=== PATIENT | female | born 1980 | race Caucasian/White ===

== ENCOUNTER 2020-07-04 08:50 | Outpatient (REF) | payer MEDICAID, SELFPAY | END 2020-07-04 08:51 | disposition home or self-care (01) | LOC: HO.SCI 08:50 | DX: Z13.89 Encounter for screening for other disorder (principal) ==

== ENCOUNTER 2020-07-14 13:06 | Outpatient (REF) | payer MEDICAID, SELFPAY ==
--- NOTE | ~2020-07-14 | CT_ITS ---
EXAMINATION: CT FACIAL BONES WITHOUT CONTRAST CLINICAL INFORMATION: Gender affirmation procedure, evaluate facial bones including vertex of skull anteriorly. COMPARISON: None TECHNIQUE: Multidetector helical imaging acquired in the axial plane with generation of reformatted acquisitions. This CT examination was performed using dose optimization techniques as appropriate, variously including the following: *Automated exposure control *Adjustment of mA and/or kV according to patient size (this includes techniques or standardized protocols for targeted exams where dose is matched to indication/reason for exam; i.e. extremities or head) *Use of iterative reconstruction technique DLP: 131 mGy-cm FINDINGS: There is mild mucosal thickening in the maxillary sinuses. [id number] ethmoid sinus mucosal thickening noted. The frontal sinuses are not pneumatized. There is very mild mucosal thickening along the anterior morales of the sphenoid sinuses bilaterally. There is a moderate leftward deviation of the nasal septum with nasal septal spurring distorting the left inferior turbinate. The ostiomeatal complexes are clear. The lamina papyracea are intact. The ethmoid roofs are asymmetric. The carotid canals are normally covered by bone. No maxillary periapical disease is seen. The third maxillary molar tooth on the left side is impacted and incompletely erupted with the crown of the tooth directed posteroinferiorly. The third mandibular molar teeth are impacted with the crown on the left side directed anteriorly. The visualized middle ear cavities are well aerated. The orbits are normal. The TMJs are unremarkable. The imaged portions of the brain demonstrate no acute abnormality. A left-sided stapes prosthesis is in place, situated within the vestibule. There are imaging findings of bilateral fenestral otosclerosis as well. The mastoid air cells and middle ear cavities are well aerated. CT/CT facial bones wo con IMPRESSION: [id number] ethmoid sinus mucosal thickening with milder patchy areas of mucosal thickening in the maxillary and sphenoid sinuses. Of note, the frontal sinuses are not developed. Moderate leftward nasal septal deviation with nasal septal spurring distorting the left inferior turbinate. Bilateral fenestral otosclerosis with a stapes prosthesis in place on the left side.
== END 2020-07-14 13:07 | disposition home or self-care (01) ==
LOC: HO.CT 13:06
PROVIDERS: PCP Internal Medicine; Visit Provider Dentist
DX: Z42.8 Encounter for other plastic and reconstructive surgery following medical procedure or healed injury (principal)
CPT/HCPCS: 70486

== ENCOUNTER → 2021-06-12 11:32 | Outpatient (BNVA) | payer MEDICAID, SELFPAY | PROVIDERS: PCP Internal Medicine; Visit Provider Nurse Practitioner | DX: K21.9 Gastro-esophageal reflux disease without esophagitis (principal); R13.10 Dysphagia, unspecified | CPT/HCPCS: 99202 ==

== ENCOUNTER 2021-06-19 09:59 | Day surgery (SDC) | payer MEDICAID, SELFPAY ==
--- NOTE | 2021-06-17 13:30 | HO.ANESPROP2 ---
Documented by User: Jazzy Gutierrez NP 06/17/21 13:30 HPI - Anesthesia Eval Consult details Narrative: 40yo F for Upper Endoscopy [facility] Active Problems Active Problems: All Active Problems (Updated 06/12/21 @ 11:56 by KIRA Otero) Dysphagia (Acute) GERD (gastroesophageal reflux disease) (Acute) Past Medical History Medical History Dysphagia GERD (gastroesophageal reflux disease) Otosclerosis Uvulitis Surgical History Surgical History History of facial surgery Social History Social History Patient Tobacco Use Status: Never used Tobacco Tobacco use type: Cigarette Smoked in Last 30 Days: No Use of substances other than those prescribed or required for medical reasons: Yes Substance Use Frequency: Weekly Are you DNR?: No Advance Directives: No Advance Directives Information Provided: Yes Meds Allergies Allergy/AdvReac Type Severity Reaction Status Date / Time novacaine Allergy rash Uncoded 06/19/21 10:18 Home Medications Medication Instructions Recorded Confirmed Last Taken Type estradiol 1 mg tablet 6 mg PO 06/12/21 Unknown History progesterone micronized 200 mg 200 mg PO BEDTIME 06/12/21 Unknown History capsule spironolactone 100 mg tablet 200 mg PO BID 06/12/21 Unknown History trazodone 100 mg tablet 100 mg PO BEDTIME 06/12/21 Unknown History Exam Exam Date and Time: June 17, 2021 1330 Assessment and Plan Assessment Anesthesia Assessment: Chart Reviewed Documented by User: Leesa Turpin MD 06/19/21 13:06 [facility] Past Medical History Medical History Dysphagia GERD (gastroesophageal reflux disease) Otosclerosis Uvulitis Surgical History Surgical History History of facial surgery History of Problems with Anesthesia: No Social History Social History Patient Tobacco Use Status: Never used Tobacco Tobacco use type: Cigarette Smoked in Last 30 Days: No Use of substances other than those prescribed or required for medical reasons: Yes Substance Use Frequency: Weekly Are you DNR?: No Advance Directives: No Advance Directives Information Provided: Yes Meds Allergies Allergy/AdvReac Type Severity Reaction Status Date / Time novacaine Allergy rash Uncoded 06/19/21 10:18 Home Medications Medication Instructions Recorded Confirmed Last Taken Type estradiol 1 mg tablet 6 mg PO 06/12/21 Unknown History progesterone micronized 200 mg 200 mg PO BEDTIME 06/12/21 Unknown History capsule spironolactone 100 mg tablet 200 mg PO BID 06/12/21 Unknown History trazodone 100 mg tablet 100 mg PO BEDTIME 06/12/21 Unknown History Exam Airway Mallampati Class: II TM Dist: >3cm Neck ROM: Full Loose/Missing/Broken Teeth: No Heart: RRR Lungs: CTA Assessment and Plan Final Anesthetic Review History of Problems with Anesthesia: No NPO: Yes ASA Class: II Final Preanesthetic Review: Meds/Allgs Chart Reviewed, Consent Obtained/Reviewed and Anes Risks/Benef Reviewed Patient Risk: Low Procedure Risk: Intermediate Anesthetic Plan Anesthetic Plan: MAC: Disposition: Standard PACU
[2021-06-19 10:29] VITALS: BMI 20.2
[2021-06-19 10:32] VITALS: BP 125/80; PULSE 80; RESP 16; TEMP 36.8; O2SAT 98
[2021-06-19] MEDS: Lactated Ringers 1,000 ML 100 ML IVCONT (11:13)
--- NOTE | 2021-06-19 11:48 | MHC.SHP ---
Pre-Procedural Eval Section A Date of Service: 06/19/21 The patient is an INPATIENT: No Changes since office visit: Yes Patient answered all questions; No Cold of Flu in the past 2 weeks, No New Medical Problems and No Changes in Medication The History & Physical has been completed within 30 days and I have reviewed it.: Yes Section B Chief Complaint: dysphagia Allergies: Allergies Allergy/AdvReac Type Severity Reaction Status Date / Time novacaine Allergy rash Uncoded 06/19/21 10:18 Plan I have reviewed the history and physical and performed a pertinent physical examination on my patient. No changes have occurred unless specified.
--- NOTE | 2021-06-19 11:48 | PM.OP ---
Brief Operative Note Date of Service: 06/19/21 Pre-op diagnosis: GERD, dysphagia Post-op diagnosis: same Procedure: FLEXIBLE TRANSORAL UPPER GASTROINTESTINAL ENDOSCOPY WITH BIOPSIES AND ESOPHAGEAL BALOON DILATION Consent: Indications for the procedure and potential complications of bleeding, perforation, reaction to medications and missed diagnosis were discussed with the patient and informed consent was obtained. Instrument: Olympus GIF H 190 mid size upper endoscope Monitoring: Vital signs and clinical assessment, continuous EKG monitoring, Pulse oximetry, Carbon Dioxide monitoring and blood pressure monitoring were done throughout the procedure. Procedure: The patient was placed in the left lateral decubitis position and pre-procedure medications were administered and a bite block was placed. The endoscope was inserted into the mouth and advanced under direct vision to the third part of duodenum. A careful inspection was made as the upper endoscope was withdrawn including a retroflexed examination of the proximal stomach; Findings and interventions are described below. Findings: Larynx: Minimal erythema of arytenoid cartilages suggestive of LPRD Esophagus: GE junction at 40 cms. No esophagitis, Vo's, stricture or ring. Biopsies were obtained from proximal esophagus to check for EOE. Esophageal balloon dilation was performed with a 20 mm (60F) CRE balloon x 60 seconds Stomach: Mild gastric erythema. Biopsies were obtained. Grade 2 flap valve on retroflexed examination of the cardia. Duodenum: Normal bulb and descending duodenum Intervention: Biopsies and baloon dilation as noted above Impression and Post Procedure Diagnosis: Endoscopy Findings: LARYNX: Changes suggestive of LPRD ESOPHAGUS: GE junction at 40 cms. No esophagitis, Vo's, stricture or ring. Biopsies were obtained from proximal esophagus to check for EOE. Empiric esophageal balloon dilation was performed with a 20 mm (60F) CRE balloon x 60 seconds STOMACH: Mild gastritis Plan: Await pathology results Patient has an appointment on 07/17/21 in the GI Clinic with Rosemary Carrera NP . Above findings were reviewed with the patient and GERD handout was given in the discharge area Surgeon: Maile Lee MD Anesthesia: MAC (Dr Turpin) Was an Salvage Laborer used for this Procedure?: Yes Salvage Laborer: Lexi Schroeder Estimated blood loss (mL): 0 Pathology: other (A. gastric antrum bxs, R/O H. pylori B. proximal esophagus bxs, R/O EOE) Condition: stable Disposition: PACU
--- NOTE | 2021-06-19 11:57 | W.PM.OPN ---
Operative Note Operative Note Date of Service: 06/19/21 Narrative: Pre-op diagnosis: GERD, dysphagia Post-op diagnosis:?same Procedure: FLEXIBLE TRANSORAL UPPER GASTROINTESTINAL ENDOSCOPY WITH BIOPSIES AND ESOPHAGEAL BALOON DILATION Consent:?Indications for the procedure and potential complications of bleeding, perforation, reaction to medications and missed diagnosis were discussed with the patient and informed consent was obtained. Instrument:?Olympus GIF H 190 mid size upper endoscope Monitoring: Vital signs and clinical assessment, continuous EKG monitoring, Pulse oximetry, Carbon Dioxide monitoring and blood pressure monitoring were done throughout the procedure. Procedure:?The patient was placed in the left lateral decubitis position and pre-procedure medications were administered and a bite block was placed. The endoscope was inserted into the mouth and advanced under direct vision to the third part of duodenum. A careful inspection was made as the upper endoscope was withdrawn including a retroflexed examination of the proximal stomach; Findings and interventions are described below. Findings: Larynx:? Minimal erythema of arytenoid cartilages suggestive of LPRD Esophagus: GE junction at 40 cms. No esophagitis, Vo's, stricture or ring. Biopsies were obtained from proximal esophagus to check for EOE. Esophageal balloon dilation was performed with a 20 mm (60F) CRE balloon x 60 seconds Stomach: Mild gastric erythema. Biopsies were obtained. Grade 2 flap valve on retroflexed examination of the cardia. Duodenum: Normal bulb and descending duodenum Intervention: Biopsies and baloon dilation as noted above Impression and Post Procedure Diagnosis: Endoscopy Findings: LARYNX: Changes suggestive of LPRD ESOPHAGUS:? GE junction at 40 cms. No esophagitis, Vo's, stricture or ring. Biopsies were obtained from proximal esophagus to check for EOE. Empiric esophageal balloon dilation was performed with a 20 mm (60F) CRE balloon x 60 seconds STOMACH: Mild gastritis Plan: Await pathology results Patient has an appointment on 07/17/21 in the GI Clinic with? Rosemary Carrera NP . Above findings were reviewed with the patient and GERD handout was given in the discharge area Surgeon: Maile Lee MD Anesthesia:?TAYLOR (Dr Turpin) Was an Gas Distribution Plant Operator used for this Procedure?:?Yes Gas Distribution Plant Operator:?Lexi Schroeder Estimated blood loss (mL):?0 Pathology:?other (A. gastric antrum bxs, R/O H. pylori? B. proximal esophagus bxs, R/O EOE) Condition:?stable Disposition:?PACU
[2021-06-19 12:25] VITALS: BP 91/56; PULSE 74; RESP 18; TEMP 36.7; O2SAT 99
[2021-06-19 12:49] VITALS: BP 106/60; PULSE 64; RESP 16; TEMP 36.8; O2SAT 100
== END 2021-06-19 13:24 | disposition home or self-care (01) ==
PROVIDERS: PCP Internal Medicine; Visit Provider Internal Medicine Gastroenterology
PROC: 0DJ08ZZ Inspection of Upper Intestinal Tract, Via Natural or Artificial Opening Endoscopic (ICD-10-PCS; CPT 43235; principal; 2021-06-19 11:00)
DX: R13.10 Dysphagia, unspecified (principal); K29.50 Unspecified chronic gastritis without bleeding; K21.9 Gastro-esophageal reflux disease without esophagitis; F64.9 Gender identity disorder, unspecified
CPT/HCPCS: 43249; 43239; 88305; 88342; C1726

== ENCOUNTER → 2021-08-04 08:15 | Outpatient (BNVA) | payer MEDICAID, SELFPAY | PROVIDERS: PCP Internal Medicine; Visit Provider Nurse Practitioner | DX: K21.9 Gastro-esophageal reflux disease without esophagitis (principal); R13.10 Dysphagia, unspecified | CPT/HCPCS: 99212 ==

== ENCOUNTER 2021-11-07 14:46 | Emergency (ER) | payer MEDICAID, SELFPAY ==
--- NOTE | ~2021-11-07 | US_ITS ---
EXAMINATION: US VENOUS ULTRASOUND WITH DOPPLER LOWER EXTREMITY, LEFT CLINICAL INFORMATION: Pain and bruising. History of vascular issues. Swelling. Rule out DVT. COMPARISON: None TECHNIQUE: Ultrasound of the deep veins is performed from the hip to the calf with compression sonography and color and pulse Doppler assessment. Spectral analysis with color-flow imaging is performed. FINDINGS: There is normal venous compression and respiratory variation and augmented flow. The visualized common femoral vein, superficial femoral vein, profunda femoral vein, popliteal vein, and the trifurcation region shows no evidence of deep venous thrombosis. There is no significant popliteal fossa cyst. No additional findings. If the patient's symptoms persist, followup ultrasound in 5 days 7 days might be of value to exclude proximal propagation from a non-visualized calf vein. US/US venous duplex LE IMPRESSION: No DVT demonstrated in the left lower extremity.
[2021-11-07 15:02] VITALS: BP 123/81; PULSE 67; RESP 16; TEMP 36.5; O2SAT 99; BMI 21.9
--- NOTE | 2021-11-07 18:27 | ED.LOWEXIN ---
HPI - Extremity Injury (Lower) General Chief Complaint: Extremity Injury, Lower Stated Complaint: ruptured artery in leg/numb Time Seen by Provider: 11/07/21 18:27 Source: patient Mode of arrival: ambulatory Limitations: no limitations History of Present Illness HPI Narrative: 41-year-old here with history of varicose veins here with reports of bruising and swelling to the left lower leg lift for several days. Patient spoke to the vascular on-call service and was recommended that she come in for a ultrasound. Patient is taking estrogen supplements. No shortness of breath, chest pain, numbness, tingling, fevers or chills. Related Data Home Medications Medication Instructions Recorded Confirmed estradiol 1 mg tablet 6 mg PO 06/12/21 progesterone micronized 200 mg 200 mg PO BEDTIME 06/12/21 capsule spironolactone 100 mg tablet 200 mg PO BID 06/12/21 trazodone 100 mg tablet 100 mg PO BEDTIME 06/12/21 Previous Rx's Medication Instructions Recorded famotidine 40 mg tablet (Pepcid) 40 mg PO BEDTIME #30 tabs 08/04/21 omeprazole 40 mg capsule,delayed 40 mg PO DAILY 30 days #30 caps 08/04/21 release Allergies Allergy/AdvReac Type Severity Reaction Status Date / Time novacaine Allergy rash Uncoded 08/04/21 08:23 Review of Systems Review of Systems: Yes all other systems are reviewed and are negative Constitutional: Constitutional: Reports no additional constitutional complaints, Denies body ache(s), Denies chills, Denies fever(s), Denies headache(s) and Denies weakness Eyes: Eyes: Reports no additional eye complaints and Denies change in vision ENT: Reports system reviewed and no additional complaints, except as documented, Denies dizziness, Denies headache(s), Denies nasal congestion, Denies nasal discharge and Denies neck pain Cardiovascular: Cardiovascular: Reports no additional cardiovascular complaints, Denies chest pain, Reports leg edema and Denies dyspnea Respiratory: Respiratory: Reports no additional respiratory complaints, Denies cough and Denies dyspnea Gastrointestinal: Gastrointestinal: Reports no additional gastrointestinal complaints, Denies abdominal pain, Denies diarrhea, Denies nausea and Denies vomiting Genitourinary: Genitourinary: Denies urinary incontinence Musculoskeletal: Musculoskeletal: Reports no additional musculoskeletal complaints, Denies back pain, Denies arthralgias, Denies joint swelling, Denies neck pain, Denies numbness and Denies tingling Integumentary/Breasts: Skin/Breast: Reports system reviewed and no additional complaints, except as docu and Denies rash Neurologic: Reports system reviewed and no additional complaints, except as documented, Denies dizziness, Denies headache(s), Denies numbness, Denies tingling and Denies weakness PMFSH Past Medical History Attestation statement: The following information was validated with the patient. Source: old records reviewed and nursing notes reviewed Medical History Otosclerosis Uvulitis Surgical History History of facial surgery Social History Social History Patient Tobacco Use Status: Never used Tobacco Tobacco use type: Cigarette Advance Directives: No Advance Directives Information Provided: No Physical Exam Vital Signs: Vital Signs: Last Vital Signs Temp 97.7 F 11/07/21 15:02 Pulse 67 11/07/21 15:02 Resp 16 11/07/21 15:02 BP 123/81 11/07/21 15:02 Pulse Ox 99 11/07/21 15:02 O2 Del Method 11/07/21 15:02 BMI result Body Mass Index 21.9 Const: General: cooperative, healthy appearing, comfortable and no acute distress Orientation/consciousness: patient oriented x3 Limitations: no limitations HEENT: Head: Yes normal to inspection Ears: hearing grossly normal bilaterally Eyes: General: appearance normal, both eyes and all related structures Pupils: Equal, round and reactive pupils present Neck: Neck: Yes normal visual inspection Chest: Chest palpation & inspection: normal inspection of the chest Resp: Effort & Inspection: normal respiratory effort Back/Spine/Pelvis: Thoracic/Lumbar Spine: thoracic and lumbar spine normal to inspection Skin: General skin exam: no rashes or lesions noted Neuro: General: patient oriented x3 and moves all extremities Cranial nerves: Yes Equal, round and reactive pupils present Extrem: Other: ecchymosis over the lateral left leg with mild tenderness. No obvious swelling/redness/warmth. Distal DP and PT pulses which are normal. No apparent swelling Course Course Course Narrative: Ultrasound is negative for DVT. There is no redness or warmth to suggest cellulitis. Patient has compression stockings and a vascular surgeon she can follow-up with. Reviewed worrisome signs and symptoms when to return to the emergency department. Comfortable discharge home. MDM - Extremity Injury (Lower) MDM Narrative Medical decision making narrative: 41-year-old patient with a history of varicose veins here with bruising and swelling to the left lateral leg for several days who is currently on estrogen therapy. Venous ultrasound will be obtained to r/o DVT Medical Records Attestation: I reviewed the patient's medical records. Lab Data Attestation: I reviewed the patient's lab results. Imaging Data Venous US: Attestation: I personally reviewed and interpreted this imaging study as follows: Radiologist's impression: TECHNIQUE: Ultrasound of the deep veins is performed from the hip to the calf with compression sonography and color and pulse Doppler assessment. Spectral analysis with color-flow imaging is performed. FINDINGS: There is normal venous compression and respiratory variation and augmented flow. The visualized common femoral vein, superficial femoral vein, profunda femoral vein, popliteal vein, and the trifurcation region shows no evidence of deep venous thrombosis. ? There is no significant popliteal fossa cyst. No additional findings. If the patient's symptoms persist, followup ultrasound in 5 days 7 days might be of value to exclude proximal propagation from a non-visualized calf vein. US/US venous duplex LE LT IMPRESSION: No DVT demonstrated in the left lower extremity. Discharge Plan Discharge Clinical Impression: Varicose veins of left lower extremity Patient Disposition: Home, Self-Care Instructions: Venous Insufficiency (DC) Additional Instructions: Your ultrasound shows no evidence of a blood clot. You should follow-up with your vascular doctor as needed Prescriptions: No Action trazodone 100 mg tablet 100 mg PO BEDTIME progesterone micronized 200 mg capsule 200 mg PO BEDTIME spironolactone 100 mg tablet 200 mg PO BID estradiol 1 mg tablet 6 mg PO famotidine [Pepcid] 40 mg tablet 40 mg PO BEDTIME Qty: 30 6RF omeprazole 40 mg capsule,delayed release(DR/EC) 40 mg PO DAILY 30 Days Qty: 30 6RF Referrals: Peyton Emery MD [Primary Care Provider] - 1 week (as needed) Interventions: ED Discharge Assessment Last Done: 11/07/21 18:59 Discharge Date/Time: 11/07/21 18:59
== END 2021-11-07 18:59 | disposition home or self-care (01) ==
PROVIDERS: Emergency Provider Emergency Medicine; PCP Internal Medicine
DX: I83.92 Asymptomatic varicose veins of left lower extremity (principal); R60.0 Localized edema; Z79.899 Other long term (current) drug therapy
CPT/HCPCS: 93971; 99282; 99283

== ENCOUNTER → 2022-03-09 11:20 | Outpatient (BNVA) | payer MEDICAID, SELFPAY | PROVIDERS: PCP Internal Medicine; Visit Provider Nurse Practitioner | DX: K21.9 Gastro-esophageal reflux disease without esophagitis (principal); R13.10 Dysphagia, unspecified; Z98.890 Other specified postprocedural states | CPT/HCPCS: 99212 ==

== ENCOUNTER → 2022-08-31 11:37 | Outpatient (BNVA) | payer MEDICAID, SELFPAY | PROVIDERS: PCP Internal Medicine; Visit Provider Nurse Practitioner | DX: Z01.818 Encounter for other preprocedural examination (principal); K21.9 Gastro-esophageal reflux disease without esophagitis; R13.10 Dysphagia, unspecified | CPT/HCPCS: 99212 ==

== ENCOUNTER 2023-02-28 16:02 | Outpatient (REF) | payer MEDICAID, SELFPAY ==
[2023-02-28 16:14] LABS: MANUAL DIFF FLAG NO
[2023-02-28 16:28] LABS: Basophils Absolute Auto 0.1 X10*3/uL (0.0-0.2); Basophils Percent Auto 0.9 % (0-2); Eosinophils Absolute Auto 0.6 X10*3/uL (0.0-0.4); Eosinophils Percent Auto 4.7 % (0-4); Hematocrit 41.8 % (42.0-52.0); Hemoglobin 13.7 g/dl (14.0-18.0); Imm Gran Abs Auto 0.05 X10*3/uL (0.00-0.03); Imm Gran Pct Auto 0.4 % (0.0-0.4); Lymphocytes Absolute Auto 1.5 X10*3/uL (1.2-4.9); Lymphocytes Percent Auto 12.6 % (20-40); Mean Corpuscular HGB Conc 32.8 g/dl (31.0-36.0); Mean Corpuscular Volume 91.7 fL (80.0-98.0); Mean Platelet Volume 11.8 fL (9.4-12.4); Monocytes Absolute Auto 0.9 X10*3/uL (0.1-1.2); Monocytes Percent Auto 7.3 % (2-11); Neutrophils Absolute Auto 8.8 x10*3/uL (2.0-8.3); Neutrophils Percent Auto 74.1 % (45-73); Platelet Count 307 X10*3/uL (160-400); Red Blood Count 4.56 X10*6/uL (4.60-5.80); Red Cell Distribution Width 12.8 % (11.0-16.0); White Blood Count 11.8 X10*3/uL (4.8-10.8)
[2023-02-28 16:56] LABS: Alanine Aminotransferase 386 U/L (0-40); Albumin Level 4.1 g/dL (3.5-5.0); Alkaline Phosphatase 163 U/L (39-117); Anion Gap 13 (12-20); Aspartate Amino Transferase 323 U/L (5-37); Bilirubin Total 0.6 mg/dL (0.0-1.0); Blood Urea Nitrogen 13 mg/dL (9-16); Calcium 9.7 mg/dL (8.4-10.2); Carbon Dioxide 27 mmol/L (22-29); Chloride 101 mmol/L (96-108); Estimated Glomerular Filt Rate > 60; Glucose Random 103 mg/dL (60-115); Potassium 3.7 mmol/L (3.3-5.1); Sodium 137 mmol/L (135-145); Total Protein 7.2 g/dL (6.5-8.0)
== END 2023-02-28 16:03 | disposition home or self-care (01) ==
LOC: HO.LAB 16:02
PROVIDERS: Visit Provider Nurse Practitioner
DX: Z01.818 Encounter for other preprocedural examination (principal)
CPT/HCPCS: 36415; 80053; 85025

== ENCOUNTER 2023-03-02 09:14 | Outpatient (AMB) | payer MEDICAID, SELFPAY ==
--- NOTE | 2023-03-02 09:18 | MHC.OFFVIS ---
Intake Vital Signs 03/02/23 09:19 Height 5 ft 10 in Weight 156 lb 1.396 oz BMI 22.4 BP 122/77 Blood Pressure Location Lt brachial Position Sitting Pulse 61 Intake Visit Reasons: 6 month follow up Intake Note: Patient returns to in office 6 months follow up of dysphagia and labs. CC: Patient reports doing well. She has EGD with balloon dilation for this Tuesday but she states she got the dates confused and will need to r/s procedure. Allergies procaine [From Novocain] Allergy (Intermediate, Verified 03/02/23 09:25) Rash HPI 6 month follow up HPI Details Assessment & Plan (1) Dysphagia: Comment: oropharyngeal at sternal notch Code(s): R13.10 - Dysphagia, unspecified Plan: She is having more dysphagia if solid foods like bread, nuts, twizzlers, apples. This is slowly getting worse after her improvement from her dilation in 2021. She rates the difficulty at about 2/10, so will get EGD ordered. She feels that her GERD medications are working, but she admits to cheating lately with acidic foods and sauces. ROV 6 mos. Transgender (2) GERD (gastroesophageal reflux disease): Code(s): K21.9 - Gastro-esophageal reflux disease without esophagitis (3) Pre-op examination: Code(s): Z01.818 - Encounter for other preprocedural examination Orders: Orders Complete Blood Cou nt Auto Diff Today Z01.818 - Encounte r for other prepro cedural examinatio n Comprehensive Met. Panel Today Z01.818 - Encounte r for other prepro cedural examinatio n Medications: Refilled omeprazole 40 mg PO DAILY 30 days 30 caps 6RF K21.9 - Gastro-eso phageal reflux dis ease without esoph agitis, R13.10 - D ysphagia, unspecif ied famotidine (Pepcid ) 40 mg PO BEDTIME 30 tabs 6RF K21.9 - Gastro-eso phageal reflux dis ease without esoph agitis, R13.10 - D ysphagia, unspecif ied LABS: Laboratory Tests 02/28/23 04:13 WBC 11.8 H Hgb 13.7 L Hct 41.8 L MCV 91.7 Plt Count 307 Estimated GFR > 60 Total Bilirubin 0.6 AST 323 H ALT 386 H Alkaline Phosphata se 163 H EGD BIOPSY TODAY'S VISIT She has the EGD booked fro this Tuesday, but it is her first day at a new job....she was confused between this appt and the EGD. I will give her to the schedulers Dysphagia continues....... I did not note the aberrant liver labs until after the patient left. So I called and left a message that I wanted some more labs later this day to investigate this. I will follow up on this. ROV after procedure [facility] Medical History Dysphagia GERD (gastroesophageal reflux disease) Otosclerosis Uvulitis Surgical History History of facial surgery Social History Patient Tobacco Use Status: Never used Tobacco Tobacco use type: Cigarette Review of Systems Const Denies fatigue, Denies fever(s), Denies night sweats, Denies poor appetite and Denies weight loss ENT Reports Normal hearing present, Denies dental pain, Reports dysphagia, Denies hearing loss, Denies mouth pain, Denies odynophagia, Denies throat swelling, Denies tongue swelling and Reports other (Dentition adequate) Card Reports no additional complaints Resp Reports no additional complaints GI Denies abdominal pain, Denies melena, Denies bloating, Denies hematochezia, Denies constipation, Denies GI cramping, Reports dysphagia, Denies excessive flatus, Denies early satiety, Reports heartburn, Denies diarrhea, Denies nausea, Denies odynophagia, Denies vomiting and Denies hematemesis Skin/Breast Denies pruritus, Denies lesions, Denies rash and Denies jaundice Neuro Reports Normal hearing present and Denies Abnormal speech present Endo Denies fatigue Aller/Immun Denies throat swelling and Denies tongue swelling Physical Exam Vital Signs: Last Vital Signs Pulse 61 03/02/23 09:19 BP 122/77 03/02/23 09:19 BMI result Body Mass Index 22.4 Const General: cooperative, no acute distress, well developed and well groomed Nutritional Appearance: average body habitus and well nourished Orientation/consciousness: oriented to person, oriented to place and oriented to time Limitations: No language barrier HEENT Head: Yes normocephalic and Yes atraumatic Eyes General: appearance normal, both eyes and all related structures Pupils: Equal, round and reactive pupils present Neck Neck: Yes normal visual inspection and Yes no lymphadenopathy Thyroid: Thyroid normal Resp Effort & Inspection: normal respiratory effort and able to speak in complete sentences Auscultation: clear to auscultation bilaterally Cardio Rate: regular rate Rhythm: regular rhythm Heart sounds: Normal, physiologic split S2 sound present Peripheral pulses: radial pulses present and posterior tibial pulses present GI Inspection: No distended and No Abdominal panniculus present Palpation (GI): Soft to palpation, nontender, no guarding, not rigid and No hepatosplenomegaly present Percussion: Yes normal to percussion Auscultation: normal bowel sounds Rectal Exam - Male: Yes deferred Skin General skin exam: no rashes or lesions noted, turgor normal, skin not dry, no jaundice, No spider nevi and no striae Rashes: no rashes Nails: normal Neuro General: oriented to person, oriented to place and oriented to time Cranial nerves: Yes Equal, round and reactive pupils present and Yes Normal hearing present Speech: No Abnormal speech present Extrem General: Yes normal to inspection, No clubbing, No cyanosis and No edema Psych Appearance: grossly normal and well kempt Mental Status: mental status grossly normal Speech and movement: Normal speech and movement present Affect: normal affect Attitude: cooperative Thought process: Normal thought process present and not confabulating Thought content: Normal thought content present Insight: Limited insight present (Psych) Judgement: Limited judgement present (Psych) Assessment & Plan Assessment & Plan (1) Dysphagia: Comment: oropharyngeal at sternal notch Code(s): R13.10 - Dysphagia, unspecified Plan: EGD BIOPSY TODAY'S VISIT She has the EGD booked fro this Tuesday, but it is her first day at a new job....she was confused between this appt and the EGD. I will give her to the schedulers Dysphagia continues....... I did not note the aberrant liver labs until after the patient left. So I called and left a message that I wanted some more labs later this day to investigate this. I will follow up on this. ROV after procedure (2) Transaminitis: Code(s): R74.01 - Elevation of levels of liver transaminase levels (3) Elevated alkaline phosphatase level: Code(s): R74.8 - Abnormal levels of other serum enzymes (4) GERD (gastroesophageal reflux disease): Code(s): K21.9 - Gastro-esophageal reflux disease without esophagitis Orders: Orders Amylase Today R74.01 - Elevation of levels of liver transaminase levels, R74.8 - Abnormal levels of other serum enzymes ERIC Reflex Titer and Pattern Today R74.01 - Elevation of levels of liver transaminase levels, R74.8 - Abnormal levels of other serum enzymes HIV Ab/Ag Today R74.01 - Elevation of levels of liver transaminase levels, R74.8 - Abnormal levels of other serum enzymes Hepatitis A,B,C Profile Today R74.01 - Elevation of levels of liver transaminase levels, R74.8 - Abnormal levels of other serum enzymes Ferritin Today R74.01 - Elevation of levels of liver transaminase levels, R74.8 - Abnormal levels of other serum enzymes Mitochondrial Antibody Today R74.01 - Elevation of levels of liver transaminase levels, R74.8 - Abnormal levels of other serum enzymes Smooth Muscle Antibody Today R74.01 - Elevation of levels of liver transaminase levels, R74.8 - Abnormal levels of other serum enzymes Transglutaminase Ab IgG Today R74.01 - Elevation of levels of liver transaminase levels, R74.8 - Abnormal levels of other serum enzymes US abdomen comp w elastography Today R74.01 - Elevation of levels of liver transaminase levels, R74.8 - Abnormal levels of other serum enzymes Alpha Fetoprotein Today R74.01 - Elevation of levels of liver transaminase levels, R74.8 - Abnormal levels of other serum enzymes Gamma Glutamyl Transpeptidase Today R74.01 - Elevation of levels of liver transaminase levels, R74.8 - Abnormal levels of other serum enzymes Phosphatidylethanol, Blood Today R74.01 - Elevation of levels of liver transaminase levels, R74.8 - Abnormal levels of other serum enzymes Transglutaminase IgA Today R74.01 - Elevation of levels of liver transaminase levels, R74.8 - Abnormal levels of other serum enzymes Coding Level of Care Code Est Pt Level 3 (70648) Diagnoses Dysphagia R13.10 Transaminitis R74.01 Elevated alkaline phosphatase level R74.8 GERD (gastroesophageal reflux disease) K21.9
[2023-03-02 09:19] VITALS: BP 122/77; PULSE 61; BMI 22.4
== END 2023-03-02 09:57 | disposition home or self-care (01) ==
PROVIDERS: Visit Provider Nurse Practitioner
DX: R13.10 Dysphagia, unspecified (principal); R74.01 Elevation of levels of liver transaminase levels; R74.8 Abnormal levels of other serum enzymes; K21.9 Gastro-esophageal reflux disease without esophagitis
CPT/HCPCS: 99213

== ENCOUNTER → 2023-03-02 09:14 | Outpatient (BNVA) | payer MEDICAID, SELFPAY | PROVIDERS: Visit Provider Nurse Practitioner | DX: R13.10 Dysphagia, unspecified (principal); R74.01 Elevation of levels of liver transaminase levels; R74.8 Abnormal levels of other serum enzymes; K21.9 Gastro-esophageal reflux disease without esophagitis | CPT/HCPCS: 99212 ==

== ENCOUNTER 2023-03-07 13:43 | Outpatient (REF) | payer MEDICAID, SELFPAY ==
[2023-03-07 16:01] LABS: Amylase 57 U/L (28-100); Gamma Glutamyl Transpeptidase 162 U/L (11-51)
[2023-03-07 16:08] LABS: Ferritin 140 ng/mL (20-250)
[2023-03-08 07:45] LABS: HBS Num1 24.24 mIU/mL (0-7.99); HBc Num1 0.08 S/CO (0.00-0.79); HBsAGNum1 0.26 S/CO (0.00-0.99); HIV AB/AG Nonreactive (Nonreactive); HIV Num 1 0.06 S/CO (0.00-0.99); Hepatitis A Antibody IgM 0.18 Index (0-0.79); Hepatitis B Core Antibody Nonreactive (Nonreactive); Hepatitis B Surface Antigen Negative (Negative); ~HepC Num1 0.05 S/CO (0.00-0.79); ~Hepatitis A Antibody IgM Nonreactive (Nonreactive); ~Hepatitis B Surface Antibody REACTIVE (Nonreactive); ~Hepatitis C Antibody Nonreactive (Nonreactive)
[2023-03-08 13:18] LABS: Transglutaminase Ab IgG <1.0 U/mL; Transglutaminase IgA <1.0 U/mL
[2023-03-08 15:28] LABS: Anti Nuclear Antibody Screen NEGATIVE (NEGATIVE)
[2023-03-10 12:19] LABS: Smooth Muscle Antibody 52 U (<20)
[2023-03-10 16:14] LABS: Mitochondrial Antibodies NEGATIVE (NEGATIVE)
[2023-03-11 11:22] LABS: Phosphatidylethanol 16:0-18:1 NEGATIVE; Phosphatidylethanol 16:0-18:2 NEGATIVE
== END 2023-03-07 13:44 | disposition home or self-care (01) ==
LOC: HO.LAB 13:43
PROVIDERS: Visit Provider Nurse Practitioner
DX: Z11.4 Encounter for screening for human immunodeficiency virus [HIV] (principal); R74.01 Elevation of levels of liver transaminase levels; R74.8 Abnormal levels of other serum enzymes
CPT/HCPCS: 36415; 80321; 82105; 82150; 82728; 82977; 86015; 86038; 86364; 86381; 86704; 86706; 86709; 86803; 87340; 87389

== ENCOUNTER 2023-03-11 10:10 | Outpatient (AMB) | payer MEDICAID, SELFPAY ==
--- NOTE | 2023-03-11 10:15 | MHC.OFFVIS ---
Intake Vital Signs 03/11/23 10:17 Height 5 ft 10 in Weight 155 lb BMI 22.2 BP 120/75 Blood Pressure Location Lt brachial Position Sitting Pulse 64 Intake Visit Reasons: follow up results Intake Note: Patient presents to in office visit today in follow up of labs and dysphagia. CC: Patient reports she has been very anxious about lab results. Denies any new GI symptoms or concerns. 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 I will give her to the schedulers Dysphagia continues....... I did not note the aberrant liver labs until after the patient left. So I called and left a message that I wanted some more labs later this day to investigate this. I will follow up on this. ROV after procedure (2) Transaminitis: Code(s): R74.01 - Elevation of levels of liver transaminase levels (3) Elevated alkaline phosphatase level: Code(s): R74.8 - Abnormal levels of other serum enzymes (4) GERD (gastroesophageal reflux disease): Code(s): K21.9 - Gastro-esophageal reflux disease without esophagitis Orders: Orders Amylase Today R74.01 - Elevation of levels of live r transaminase lev els, R74.8 - Abnor mal levels of othe r serum enzymes ERIC Reflex Titer a nd Pattern Today R74.01 - Elevation of levels of live r transaminase lev els, R74.8 - Abnor mal levels of othe r serum enzymes HIV Ab/Ag Today R74.01 - Elevation of levels of live r transaminase lev els, R74.8 - Abnor mal levels of othe r serum enzymes Hepatitis A,B,C Pr ofile Today R74.01 - Elevation of levels of live r transaminase lev els, R74.8 - Abnor mal levels of othe r serum enzymes Ferritin Today R74.01 - Elevation of levels of live r transaminase lev els, R74.8 - Abnor mal levels of othe r serum enzymes Mitochondrial Anti body Today R74.01 - Elevation of levels of live r transaminase lev els, R74.8 - Abnor mal levels of othe r serum enzymes Smooth Muscle Anti body Today R74.01 - Elevation of levels of live r transaminase lev els, R74.8 - Abnor mal levels of othe r serum enzymes Transglutaminase A b IgG Today R74.01 - Elevation of levels of live r transaminase lev els, R74.8 - Abnor mal levels of othe r serum enzymes US abdomen comp w elastography Today R74.01 - Elevation of levels of live r transaminase lev els, R74.8 - Abnor mal levels of othe r serum enzymes Alpha Fetoprotein Today R74.01 - Elevation of levels of live r transaminase lev els, R74.8 - Abnor mal levels of othe r serum enzymes Gamma Glutamyl Tra nspeptidase Today R74.01 - Elevation of levels of live r transaminase lev els, R74.8 - Abnor mal levels of othe r serum enzymes Phosphatidylethano l, Blood Today R74.01 - Elevation of levels of live r transaminase lev els, R74.8 - Abnor mal levels of othe r serum enzymes Transglutaminase I gA Today R74.01 - Elevation of levels of live r transaminase lev els, R74.8 - Abnor mal levels of othe r serum enzymes LABS: Laboratory Tests 02/28/23 02/28/23 02/28/23 04:13 04:13 04:13 Plt Count 307 Ferritin Total Bilirubin 0.6 GGT AST 323 H ALT 386 H Alkaline Phosphata se 163 H Amylase Alpha Fetoprotein ERIC Screen Anti-Mitochondrial Ab Anti-Smooth Muscle Ab Tiss Transglutamin IgG Tiss Transglutamin IgA PEth 16:0/18.1 (PO PEth) Hepatitis A IgM Ab Hep Bs Antigen Hep Bs Antibody Hep B Core Total A b Hepatitis C Ab (EI A) HIV 1&2 Ab/P24 Ag 4thGn 03/07/23 03/07/23 03/07/23 14:01 14:01 14:01 Plt Count Ferritin 140 Total Bilirubin GGT 162 H AST ALT Alkaline Phosphata se Amylase 57 Alpha Fetoprotein 4.0 ERIC Screen NEGATIVE Anti-Mitochondrial Ab NEGATIVE Anti-Smooth Muscle Ab 52 H Tiss Transglutamin IgG <1.0 Tiss Transglutamin IgA <1.0 PEth 16:0/18.1 (PO PEth) Pending Hepatitis A IgM Ab Nonreactive Hep Bs Antigen Negative Hep Bs Antibody REACTIVE Hep B Core Total A b Nonreactive Hepatitis C Ab (EI A) Nonreactive HIV 1&2 Ab/P24 Ag 4thGn Nonreactive ULTRASOUND OF THE ABDOMEN WITH ELASTOGRAPHY . EGD BIOPSY TODAY'S VISIT She is here today with her partner She has been having frequent ROWLEY recently, her hair is falling out. She does not drink ETOH. NO pain or N/V wt loss or severe fatigue. Very worried, stopped all of her medications but then had to restart - caused her hair to fall out. She is on hormone replacement therapy. She identifies as female but was male - wants gender changed. This is been a problem for her in our healthcare system although she has encountered it another area facilities. She requests a phone number for administration to make them aware of the problem to see if this can be appropriately addressed. This is provided. Today I educate her what we will be testing for to rule out things like autoimmune liver disease, infectious etiologies etc.. She is extremely concerned because she is very proactive with her health and I try to reassure her that we can get to the bottom of this. ROV after US that is 03/25 [facility] Medical History (Updated 04/04/23 @ 13:30 by Rosa Lopes RN) Transgender person on hormone therapy Otosclerosis Uvulitis Dysphagia GERD (gastroesophageal reflux disease) Surgical History History of facial surgery Social History Patient Tobacco Use Status: Never used Tobacco Tobacco use type: Cigarette Review of Systems Const Reports fatigue, Denies fever(s), Reports malaise, Denies night sweats, Denies poor appetite and Denies weight loss ENT Reports Normal hearing present, Denies dental pain, Reports dysphagia, Denies hearing loss, Denies mouth pain, Denies odynophagia, Denies throat swelling, Denies tongue swelling and Reports other (Dentition adequate) Card Reports no additional complaints Resp Reports no additional complaints GI Denies abdominal pain, Denies melena, Denies bloating, Denies hematochezia, Denies constipation, Denies GI cramping, Reports dysphagia, Denies excessive flatus, Denies early satiety, Reports heartburn, Denies diarrhea, Denies nausea, Denies odynophagia, Denies vomiting and Denies hematemesis Skin/Breast Denies pruritus, Denies lesions, Denies rash and Denies jaundice Neuro Reports Normal hearing present and Denies Abnormal speech present Psych Reports anxiety Endo Reports fatigue Aller/Immun Denies throat swelling and Denies tongue swelling Physical Exam Vital Signs: Last Vital Signs Pulse 64 03/11/23 10:17 BP 120/75 03/11/23 10:17 BMI result Body Mass Index 22.2 Const General: cooperative, no acute distress, well developed and well groomed Nutritional Appearance: average body habitus and well nourished Orientation/consciousness: oriented to person, oriented to place and oriented to time Limitations: No language barrier HEENT Head: Yes normocephalic and Yes atraumatic Eyes General: appearance normal, both eyes and all related structures Pupils: Equal, round and reactive pupils present Neck Neck: Yes normal visual inspection and Yes no lymphadenopathy Thyroid: Thyroid normal Resp Effort & Inspection: normal respiratory effort and able to speak in complete sentences Auscultation: clear to auscultation bilaterally Cardio Rate: regular rate Rhythm: regular rhythm Heart sounds: Normal, physiologic split S2 sound present Peripheral pulses: radial pulses present and posterior tibial pulses present GI Inspection: No distended and No Abdominal panniculus present Palpation (GI): Soft to palpation, nontender, no guarding, not rigid and No hepatosplenomegaly present Percussion: Yes normal to percussion Auscultation: normal bowel sounds Rectal Exam - Male: Yes deferred Skin General skin exam: no rashes or lesions noted, turgor normal, skin not dry, no jaundice, No spider nevi and no striae Rashes: no rashes Nails: normal Neuro General: oriented to person, oriented to place and oriented to time Cranial nerves: Yes Equal, round and reactive pupils present and Yes Normal hearing present Speech: No Abnormal speech present Extrem General: Yes normal to inspection, No clubbing, No cyanosis and No edema Psych Appearance: grossly normal and well kempt Mental Status: mental status grossly normal Speech and movement: Normal speech and movement present Affect: normal affect Attitude: cooperative Thought process: Normal thought process present and not confabulating Thought content: Normal thought content present Insight: Fair insight present (Psych) Judgement: Fair judgement present (Psych) Assessment & Plan Assessment & Plan (1) Transaminitis: Code(s): R74.01 - Elevation of levels of liver transaminase levels Plan: She is here today with her partner She has been having frequent ROWLYE recently, her hair is falling out. She does not drink ETOH. NO pain or N/V wt loss or severe fatigue. Very worried, stopped all of her medications but then had to restart - caused her hair to fall out. She is on hormone replacement therapy. She identifies as female but was male - wants gender changed. This is been a problem for her in our healthcare system although she has encountered it another area facilities. She requests a phone number for administration to make them aware of the problem to see if this can be appropriately addressed. This is provided. Today I educate her what we will be testing for to rule out things like autoimmune liver disease, infectious etiologies etc.. She is extremely concerned because she is very proactive with her health and I try to reassure her that we can get to the bottom of this. ROV after US that is 03/25 (2) Elevated alkaline phosphatase level: Code(s): R74.8 - Abnormal levels of other serum enzymes (3) Dysuria: Code(s): R30.0 - Dysuria Plan ULTRASOUND OF THE ABDOMEN WITH ELASTOGRAPHY . EGD BIOPSY TODAY'S VISIT She is here today with her partner She has been having frequent ROWLEY recently, her hair is falling out. She does not drink ETOH. NO pain or N/V wt loss or severe fatigue. Very worried, stopped all of her medications but then had to restart - caused her hair to fall out. She is on hormone replacement therapy. She identifies as female but was male - wants gender changed. This is been a problem for her in our healthcare system although she has encountered it another area facilities. She requests a phone number for administration to make them aware of the problem to see if this can be appropriately addressed. This is provided. Today I educate her what we will be testing for to rule out things like autoimmune liver disease, infectious etiologies etc.. She is extremely concerned because she is very proactive with her health and I try to reassure her that we can get to the bottom of this. ROV after US that is 03/25 Orders: Orders Duglas-Foster Virus Profile 03/11/23 R74.01 - Elevation of levels of liver transaminase levels, R74.8 - Abnormal levels of other serum enzymes Ceruloplasmin 03/11/23 R74.01 - Elevation of levels of liver transaminase levels, R74.8 - Abnormal levels of other serum enzymes Prothrombin Time INR 03/11/23 R74.01 - Elevation of levels of liver transaminase levels, R74.8 - Abnormal levels of other serum enzymes Monotest 03/11/23 R74.01 - Elevation of levels of liver transaminase levels, R74.8 - Abnormal levels of other serum enzymes Liver Panel 03/11/23 R74.01 - Elevation of levels of liver transaminase levels, R74.8 - Abnormal levels of other serum enzymes UA CC w/rflx Micro + Cult 03/11/23 R30.0 - Dysuria Coding Level of Care Code Est Pt Level 4 (34165) Diagnoses Transaminitis R74.01 Elevated alkaline phosphatase level R74.8 Dysuria R30.0
[2023-03-11 10:17] VITALS: BP 120/75; PULSE 64; BMI 22.2
== END 2023-03-11 10:50 | disposition home or self-care (01) ==
PROVIDERS: PCP Internal Medicine; Visit Provider Nurse Practitioner
DX: R74.01 Elevation of levels of liver transaminase levels (principal); R74.8 Abnormal levels of other serum enzymes; R30.0 Dysuria
CPT/HCPCS: 99214

== ENCOUNTER 2023-03-11 10:10 | Outpatient (REF) | payer MEDICAID, SELFPAY ==
[2023-03-11 11:16] LABS: INTERNATIONAL NORM RATIO 0.9 (0.9-1.1); Prothrombin Time 10.9 SEC (11.1-13.3)
[2023-03-11 11:43] LABS: Alanine Aminotransferase 70 U/L (0-40); Albumin Level 4.2 g/dL (3.5-5.0); Alkaline Phosphatase 130 U/L (39-117); Aspartate Amino Transferase 33 U/L (5-37); Bilirubin Direct 0.2 mg/dL (0.0-0.5); Bilirubin Total 0.5 mg/dL (0.0-1.0); Total Protein 7.2 g/dL (6.5-8.0)
[2023-03-11 12:35] LABS: Monotest Negative (Negative)
[2023-03-11 13:25] LABS: Appearance Urine Clear; Color Urine Yellow; Glucose Urine UA Negative (Negative); Leukocyte Esterase Urine Trace (Negative); Nitrite Urine Negative (Negative); PH 7.5 (5.0-9.0); UMIC TRIGGER UACC YES; Urine Blood Negative (Negative); Urine Ketones Negative (Negative); Urine Protein Negative (Neg-Trace)
[2023-03-11 13:31] LABS: Bacteria Urine None Seen (None Seen); Hyaline Casts Urine 0-2 /LPF (0-2); RBC Urine 0-2 /HPF (0-2); WBC Urine 0-5 /HPF (0-5)
[2023-03-12 12:54] LABS: EBV-VCA IgM Ab <36.00 U/mL
[2023-03-14 15:57] LABS: Ceruloplasmin 38 mg/dL (18-36)
== END 2023-03-11 10:11 | disposition home or self-care (01) ==
LOC: HO.LAB 10:10
PROVIDERS: PCP Internal Medicine; Visit Provider Nurse Practitioner
DX: R74.01 Elevation of levels of liver transaminase levels (principal); R74.8 Abnormal levels of other serum enzymes; R30.0 Dysuria; R13.10 Dysphagia, unspecified; K21.9 Gastro-esophageal reflux disease without esophagitis
CPT/HCPCS: 36415; 80076; 81001; 82390; 85610; 86308; 86664; 86665; 99212

== ENCOUNTER 2023-03-25 14:08 | Outpatient (REF) | payer MEDICAID, SELFPAY ==
--- NOTE | ~2023-03-25 | US_ITS ---
EXAMINATION: US COMPLETE ABDOMEN WITH LIVER ELASTOGRAPHY CLINICAL INFORMATION: Elevated levels of liver transaminase COMPARISON: None available. TECHNIQUE: Real-time imaging of the abdominal viscera. Noninvasive ultrasound liver fibrosis assessment is performed using [employer] ElastPQ point quantification shear wave elastography (2D-SWE) with a C5-2 MHz transducer. Multiple elastography samples are obtained. FINDINGS: PANCREAS: Normal. ABDOMINAL AORTA: The proximal, middle, and distal aortic segments are normal in caliber. INFERIOR VENA CAVA: Visualized portions are normal. LIVER: Normal. The liver demonstrates normal size, contour and echogenicity. No focal lesion or intrahepatic ductal dilatation. Portal flow is normal. Shear wave liver elastography median stiffness is 1.42 m/s (reference: normal median stiffness is 1.3 m/s or less). Compensated advanced chronic liver disease is ruled out if the m/s measurement is < 1.7. IQR/median stiffness to assess sampling precision is 0.19 (reference: good quality data set is IQR/median stiffness of 0.15 or less). GALLBLADDER: Minimal sludge. No gallstones. No gallbladder wall thickening or pericholecystic fluid. COMMON BILE DUCT: Normal in caliber measuring 0.5 cm in diameter. RIGHT KIDNEY: Normal. No hydronephrosis. No renal calculi or focal parenchymal lesions. The kidney measures 13.3 cm in maximum dimension. LEFT KIDNEY: Normal. No hydronephrosis. No renal calculi or focal parenchymal lesions. The kidney measures 12.8 cm in maximum dimension. SPLEEN: Normal. The spleen measures 9.3 cm in maximum dimension. FREE FLUID: None. US/US abdomen comp w elastography IMPRESSION: 1. Normal sonographic examination of the abdomen. No evidence of hepatic cirrhosis or mass. 2. Liver elastography: Although measurements appear to rule out compensated advanced chronic liver disease, there is statistical variability of the sampling which decreases accuracy. REFERENCE: Society of Radiologists in Ultrasound Liver Stiffness Thresholds (2020): LIVER STIFFNESS THRESHOLDS: *Liver Stiffness equal or less than 1.3 m/s: High probability of being normal. *Liver Stiffness less than 1.7 m/s: In the absence of other known clinical signs, rules out compensated advanced chronic liver disease. *Liver Stiffness 1.7-2.1 m/s: Suggestive of compensated advanced chronic liver disease but need further test for confirmation. *Liver Stiffness over 2.1 m/s: Rules in compensated advanced chronic liver disease. *Liver Stiffness over 2.4 m/s: Suggestive of clinically significant portal hypertension. QUALITY OF DATA SET: *IQR/Median value equal or less than 0.15 implies a quality data set. *IQR/Median value over 0.15 implies a poor quality data set. OTHER CONSIDERATIONS: The stage of liver fibrosis may be overestimated in the setting of acute hepatitis, liver inflammation, elevated liver function tests, hepatic vascular congestion, obstructive cholestasis, non-fasting state, and infiltrative diseases such as amyloidosis and lymphoma. In some patients with NAFLD, the liver stiffness thresholds for compensated advanced chronic liver disease may be lower. In causes other than viral hepatitis and NAFLD, liver stiffness thresholds are not well established.
== END 2023-03-25 14:09 | disposition home or self-care (01) ==
LOC: HO.US 14:08
PROVIDERS: PCP Internal Medicine; Visit Provider Nurse Practitioner
DX: R74.01 Elevation of levels of liver transaminase levels (principal); R74.8 Abnormal levels of other serum enzymes
CPT/HCPCS: 76705; 76981

== ENCOUNTER 2023-03-30 10:50 | Outpatient (AMB) | payer MEDICAID, SELFPAY ==
[2023-03-30 10:54] VITALS: BP 123/74; PULSE 59; BMI 23.0
--- NOTE | 2023-03-30 10:54 | MHC.OFFVIS ---
Intake Vital Signs 03/30/23 10:54 Height 5 ft 10 in Weight 160 lb 7.944 oz BMI 23.0 BP 123/74 Blood Pressure Location Lt brachial Position Sitting Pulse 59 Intake Visit Reasons: us follow up Intake Note: Patient presents to in office visit today in follow up of US. CC:Reports everything has been the same since her last visit and denies having any new GI symptoms or concerns. Patient states she is really upset about gender in her chart been male, despite insurance and legal documents been switched to female 8 years ago. Allergies procaine [From Novocain] Allergy (Intermediate, Verified 04/28/23 13:31) Rash HPI us follow up HPI Details Assessment & Plan (1) Dysphagia: Comment: oropharyngeal at sternal notch Code(s): R13.10 - Dysphagia, unspecified Plan: She has the EGD booked fro this Tuesday, but it is her first day at a new job....she was confused between this appt and the EGD. I will give her to the schedulers Dysphagia continues....... I did not note the aberrant liver labs until after the patient left. So I called and left a message that I wanted some more labs later this day to investigate this. I will follow up on this. ROV after procedure (2) Transaminitis: Code(s): R74.01 - Elevation of levels of liver transaminase levels (3) Elevated alkaline phosphatase level: Code(s): R74.8 - Abnormal levels of other serum enzymes (4) GERD (gastroesophageal reflux disease): Code(s): K21.9 - Gastro-esophageal reflux disease without esophagitis Orders: Orders Amylase Today R74.01 - Elevation of levels of live r transaminase lev els, R74.8 - Abnor mal levels of othe r serum enzymes ERIC Reflex Titer a nd Pattern Today R74.01 - Elevation of levels of live r transaminase lev els, R74.8 - Abnor mal levels of othe r serum enzymes HIV Ab/Ag Today R74.01 - Elevation of levels of live r transaminase lev els, R74.8 - Abnor mal levels of othe r serum enzymes Hepatitis A,B,C Pr ofile Today R74.01 - Elevation of levels of live r transaminase lev els, R74.8 - Abnor mal levels of othe r serum enzymes Ferritin Today R74.01 - Elevation of levels of live r transaminase lev els, R74.8 - Abnor mal levels of othe r serum enzymes Mitochondrial Anti body Today R74.01 - Elevation of levels of live r transaminase lev els, R74.8 - Abnor mal levels of othe r serum enzymes Smooth Muscle Anti body Today R74.01 - Elevation of levels of live r transaminase lev els, R74.8 - Abnor mal levels of othe r serum enzymes Transglutaminase A b IgG Today R74.01 - Elevation of levels of live r transaminase lev els, R74.8 - Abnor mal levels of othe r serum enzymes US abdomen comp w elastography Today R74.01 - Elevation of levels of live r transaminase lev els, R74.8 - Abnor mal levels of othe r serum enzymes Alpha Fetoprotein Today R74.01 - Elevation of levels of live r transaminase lev els, R74.8 - Abnor mal levels of othe r serum enzymes Gamma Glutamyl Tra nspeptidase Today R74.01 - Elevation of levels of live r transaminase lev els, R74.8 - Abnor mal levels of othe r serum enzymes Phosphatidylethano l, Blood Today R74.01 - Elevation of levels of live r transaminase lev els, R74.8 - Abnor mal levels of othe r serum enzymes Transglutaminase I gA Today R74.01 - Elevation of levels of live r transaminase lev els, R74.8 - Abnor mal levels of othe r serum enzymes LABS: Laboratory Tests 02/28/23 02/28/23 03/07/23 04:13 04:13 14:01 WBC 11.8 H Hgb 13.7 L Hct 41.8 L MCV 91.7 MCH 30.0 Plt Count 307 PT INR Estimated GFR > 60 Ferritin 140 Total Bilirubin Direct Bilirubin GGT AST ALT Alkaline Phosphata se Ceruloplasmin Amylase Alpha Fetoprotein ERIC Screen Anti-Mitochondrial Ab Anti-Smooth Muscle Ab Tiss Transglutamin IgG Tiss Transglutamin IgA PEth 16:0/18.1 (PO PEth) PEth 16:0/18.2 (PL PEth) EBV Capsid Ag IgG Ab EBV Capsid Ag IgM Index EBV Nuclear Ag IgG Indx Hepatitis A IgM Ab Hep Bs Antigen Hep Bs Antibody Hep B Core Total A b Hepatitis C Ab (EI A) Monoscreen HIV 1&2 Ab/P24 Ag 4thGn 03/07/23 03/07/23 03/07/23 14:01 14:01 14:01 WBC Hgb Hct MCV MCH Plt Count PT INR Estimated GFR Ferritin Total Bilirubin Direct Bilirubin GGT 162 H AST ALT Alkaline Phosphata se Ceruloplasmin Amylase Alpha Fetoprotein 4.0 ERIC Screen NEGATIVE Anti-Mitochondrial Ab NEGATIVE Anti-Smooth Muscle Ab 52 H Tiss Transglutamin IgG <1.0 Tiss Transglutamin IgA <1.0 PEth 16:0/18.1 (PO PEth) NEGATIVE PEth 16:0/18.2 (PL PEth) NEGATIVE EBV Capsid Ag IgG Ab EBV Capsid Ag IgM Index EBV Nuclear Ag IgG Indx Hepatitis A IgM Ab Nonreactive Hep Bs Antigen Hep Bs Antibody Hep B Core Total A b Hepatitis C Ab (EI A) Monoscreen HIV 1&2 Ab/P24 Ag 4thGn 03/07/23 03/07/23 03/11/23 14:01 14:01 11:05 WBC Hgb Hct MCV MCH Plt Count PT 10.9 L INR 0.9 Estimated GFR Ferritin Total Bilirubin Direct Bilirubin GGT AST ALT Alkaline Phosphata se Ceruloplasmin Amylase 57 Alpha Fetoprotein ERIC Screen Anti-Mitochondrial Ab Anti-Smooth Muscle Ab Tiss Transglutamin IgG Tiss Transglutamin IgA PEth 16:0/18.1 (PO PEth) PEth 16:0/18.2 (PL PEth) EBV Capsid Ag IgG Ab EBV Capsid Ag IgM Index EBV Nuclear Ag IgG Indx Hepatitis A IgM Ab Hep Bs Antigen Negative Hep Bs Antibody REACTIVE Hep B Core Total A b Nonreactive Hepatitis C Ab (EI A) Nonreactive Monoscreen HIV 1&2 Ab/P24 Ag 4thGn Nonreactive 03/11/23 03/11/23 03/11/23 11:05 11:05 11:05 WBC Hgb Hct MCV MCH Plt Count PT INR Estimated GFR Ferritin Total Bilirubin 0.5 Direct Bilirubin 0.2 GGT AST 33 ALT 70 H Alkaline Phosphata se 130 H Ceruloplasmin Amylase Alpha Fetoprotein ERIC Screen Anti-Mitochondrial Ab Anti-Smooth Muscle Ab Tiss Transglutamin IgG Tiss Transglutamin IgA PEth 16:0/18.1 (PO PEth) PEth 16:0/18.2 (PL PEth) EBV Capsid Ag IgG Ab 288.00 H EBV Capsid Ag IgM Index <36.00 EBV Nuclear Ag IgG Indx 296.00 H Hepatitis A IgM Ab Hep Bs Antigen Hep Bs Antibody Hep B Core Total A b Hepatitis C Ab (EI A) Monoscreen HIV 1&2 Ab/P24 Ag 4thGn 03/11/23 03/11/23 11:05 11:05 WBC Hgb Hct MCV MCH Plt Count PT INR Estimated GFR Ferritin Total Bilirubin Direct Bilirubin GGT AST ALT Alkaline Phosphata se Ceruloplasmin 38 H Amylase Alpha Fetoprotein ERIC Screen Anti-Mitochondrial Ab Anti-Smooth Muscle Ab Tiss Transglutamin IgG Tiss Transglutamin IgA PEth 16:0/18.1 (PO PEth) PEth 16:0/18.2 (PL PEth) EBV Capsid Ag IgG Ab EBV Capsid Ag IgM Index EBV Nuclear Ag IgG Indx Hepatitis A IgM Ab Hep Bs Antigen Hep Bs Antibody Hep B Core Total A b Hepatitis C Ab (EI A) Monoscreen Negative HIV 1&2 Ab/P24 Ag 4thGn ULTRASOUND OF THE ABDOMEN WITH ELASTOGRAPHY 03/27/23 (F-0, F-1) FINDINGS: PANCREAS: Normal. ABDOMINAL AORTA: The proximal, middle, and distal aortic segments are normal in caliber. INFERIOR VENA CAVA: Visualized portions are normal. LIVER: Normal. The liver demonstrates normal size, contour and echogenicity. No focal lesion or intrahepatic ductal dilatation. Portal flow is normal. Shear wave liver elastography median stiffness is 1.42 m/s (reference: normal median stiffness is 1.3 m/s or less). Compensated advanced chronic liver disease is ruled out if the m/s measurement is < 1.7. IQR/median stiffness to assess sampling precision is 0.19 (reference: good quality data set is IQR/median stiffness of 0.15 or less). GALLBLADDER: Minimal sludge. No gallstones. No gallbladder wall thickening or pericholecystic fluid. COMMON BILE DUCT: Normal in caliber measuring 0.5 cm in diameter. RIGHT KIDNEY: Normal. No hydronephrosis. No renal calculi or focal parenchymal lesions. The kidney measures 13.3 cm in maximum dimension. LEFT KIDNEY: Normal. No hydronephrosis. No renal calculi or focal parenchymal lesions. The kidney measures 12.8 cm in maximum dimension. SPLEEN: Normal. The spleen measures 9.3 cm in maximum dimension. FREE FLUID: None. US/US abdomen comp w elastography IMPRESSION: 1. Normal sonographic examination of the abdomen. No evidence of hepatic cirrhosis or mass. 2. Liver elastography: Although measurements appear to rule out compensated advanced chronic liver disease, there is statistical variability of the sampling which decreases accuracy. . EGD BIOPSY TODAY'S VISIT We review the tests and her #'s are coming down, she cut the hormones in half but I'm unsure if this is the reason. She was having some fatigue and ROWLEY daily prior to this. BUT her test was too low so they cut back the other hormones. She has the EGD coming up in Apr and as a follow up with me 06/21. We will keep this for now and get liver biopsy since blood test not conclusive. Return office visit after the liver biopsy. [facility] Medical History (Updated 04/28/23 @ 13:46 by KIRA Otero) Transgender person on hormone therapy Otosclerosis Uvulitis Dysphagia GERD (gastroesophageal reflux disease) Surgical History (Updated 04/22/23 @ 11:41 by Tamika Saba RN) History of esophagogastroduodenoscopy (EGD) History of liver biopsy History of facial surgery Social History Patient Tobacco Use Status: Never used Tobacco Tobacco use type: Cigarette Review of Systems Const Reports fatigue, Denies fever(s), Reports headache(s), Denies night sweats, Denies poor appetite and Denies weight loss ENT Reports Normal hearing present, Denies dental pain, Reports dysphagia, Reports headache(s), Denies hearing loss, Denies mouth pain, Denies odynophagia, Denies throat swelling, Denies tongue swelling and Reports other (Dentition adequate) Card Reports no additional complaints Resp Reports no additional complaints GI Denies abdominal pain, Denies melena, Denies bloating, Denies hematochezia, Denies constipation, Denies GI cramping, Reports dysphagia, Denies excessive flatus, Denies early satiety, Denies heartburn, Denies diarrhea, Denies nausea, Denies odynophagia, Denies vomiting and Denies hematemesis Skin/Breast Denies pruritus, Denies lesions, Denies rash and Denies jaundice Neuro Reports Normal hearing present, Denies Abnormal speech present and Reports headache(s) Endo Reports fatigue Aller/Immun Denies throat swelling and Denies tongue swelling Physical Exam Vital Signs: Last Vital Signs Pulse 59 03/30/23 10:54 BP 123/74 03/30/23 10:54 BMI result Body Mass Index 23.0 Const General: cooperative, no acute distress, well developed and well groomed Nutritional Appearance: average body habitus and well nourished Orientation/consciousness: oriented to person, oriented to place and oriented to time Limitations: No language barrier HEENT Head: Yes normocephalic and Yes atraumatic Eyes General: appearance normal, both eyes and all related structures Pupils: Equal, round and reactive pupils present Neck Neck: Yes normal visual inspection and Yes no lymphadenopathy Thyroid: Thyroid normal Resp Effort & Inspection: normal respiratory effort and able to speak in complete sentences Auscultation: clear to auscultation bilaterally Cardio Rate: regular rate Rhythm: regular rhythm Heart sounds: Normal, physiologic split S2 sound present Peripheral pulses: radial pulses present and posterior tibial pulses present GI Inspection: No distended and No Abdominal panniculus present Palpation (GI): Soft to palpation, nontender, no guarding, not rigid and No hepatosplenomegaly present Percussion: Yes normal to percussion Auscultation: normal bowel sounds Skin General skin exam: no rashes or lesions noted, turgor normal, skin not dry, no jaundice, No spider nevi and no striae Rashes: no rashes Nails: normal Neuro General: oriented to person, oriented to place and oriented to time Cranial nerves: Yes Equal, round and reactive pupils present and Yes Normal hearing present Speech: No Abnormal speech present Extrem General: Yes normal to inspection, No clubbing, No cyanosis and No edema Psych Appearance: grossly normal and well kempt Mental Status: mental status grossly normal Speech and movement: Normal speech and movement present Affect: normal affect Attitude: cooperative Thought process: Normal thought process present and not confabulating Thought content: Normal thought content present Insight: Fair insight present (Psych) Judgement: Fair judgement present (Psych) Results Reviewed Results Reviewed: Laboratory Tests 02/28/23 02/28/23 03/07/23 04:13 04:13 14:01 WBC 11.8 H Hgb 13.7 L Hct 41.8 L MCV 91.7 MCH 30.0 Plt Count 307 PT INR Estimated GFR > 60 Ferritin 140 Total Bilirubin Direct Bilirubin GGT AST ALT Alkaline Phosphatase Ceruloplasmin Amylase Alpha Fetoprotein ERIC Screen Anti-Mitochondrial Ab Anti-Smooth Muscle Ab Tiss Transglutamin IgG Tiss Transglutamin IgA PEth 16:0/18.1 (POPEth) PEth 16:0/18.2 (PLPEth) EBV Capsid Ag IgG Ab EBV Capsid Ag IgM Index EBV Nuclear Ag IgG Indx Hepatitis A IgM Ab Hep Bs Antigen Hep Bs Antibody Hep B Core Total Ab Hepatitis C Ab (EIA) Monoscreen HIV 1&2 Ab/P24 Ag 4thGn 03/07/23 03/07/23 03/07/23 14:01 14:01 14:01 WBC Hgb Hct MCV MCH Plt Count PT INR Estimated GFR Ferritin Total Bilirubin Direct Bilirubin GGT 162 H AST ALT Alkaline Phosphatase Ceruloplasmin Amylase Alpha Fetoprotein 4.0 ERIC Screen NEGATIVE Anti-Mitochondrial Ab NEGATIVE Anti-Smooth Muscle Ab 52 H Tiss Transglutamin IgG <1.0 Tiss Transglutamin IgA <1.0 PEth 16:0/18.1 (POPEth) NEGATIVE PEth 16:0/18.2 (PLPEth) NEGATIVE EBV Capsid Ag IgG Ab EBV Capsid Ag IgM Index EBV Nuclear Ag IgG Indx Hepatitis A IgM Ab Nonreactive Hep Bs Antigen Hep Bs Antibody Hep B Core Total Ab Hepatitis C Ab (EIA) Monoscreen HIV 1&2 Ab/P24 Ag 4thGn 03/07/23 03/07/23 03/11/23 14:01 14:01 11:05 WBC Hgb Hct MCV MCH Plt Count PT 10.9 L INR 0.9 Estimated GFR Ferritin Total Bilirubin Direct Bilirubin GGT AST ALT Alkaline Phosphatase Ceruloplasmin Amylase 57 Alpha Fetoprotein ERIC Screen Anti-Mitochondrial Ab Anti-Smooth Muscle Ab Tiss Transglutamin IgG Tiss Transglutamin IgA PEth 16:0/18.1 (POPEth) PEth 16:0/18.2 (PLPEth) EBV Capsid Ag IgG Ab EBV Capsid Ag IgM Index EBV Nuclear Ag IgG Indx Hepatitis A IgM Ab Hep Bs Antigen Negative Hep Bs Antibody REACTIVE Hep B Core Total Ab Nonreactive Hepatitis C Ab (EIA) Nonreactive Monoscreen HIV 1&2 Ab/P24 Ag 4thGn Nonreactive 03/11/23 03/11/23 03/11/23 11:05 11:05 11:05 WBC Hgb Hct MCV MCH Plt Count PT INR Estimated GFR Ferritin Total Bilirubin 0.5 Direct Bilirubin 0.2 GGT AST 33 ALT 70 H Alkaline Phosphatase 130 H Ceruloplasmin Amylase Alpha Fetoprotein ERIC Screen Anti-Mitochondrial Ab Anti-Smooth Muscle Ab Tiss Transglutamin IgG Tiss Transglutamin IgA PEth 16:0/18.1 (POPEth) PEth 16:0/18.2 (PLPEth) EBV Capsid Ag IgG Ab 288.00 H EBV Capsid Ag IgM Index <36.00 EBV Nuclear Ag IgG Indx 296.00 H Hepatitis A IgM Ab Hep Bs Antigen Hep Bs Antibody Hep B Core Total Ab Hepatitis C Ab (EIA) Monoscreen HIV 1&2 Ab/P24 Ag 4thGn 03/11/23 03/11/23 11:05 11:05 WBC Hgb Hct MCV MCH Plt Count PT INR Estimated GFR Ferritin Total Bilirubin Direct Bilirubin GGT AST ALT Alkaline Phosphatase Ceruloplasmin 38 H Amylase Alpha Fetoprotein ERIC Screen Anti-Mitochondrial Ab Anti-Smooth Muscle Ab Tiss Transglutamin IgG Tiss Transglutamin IgA PEth 16:0/18.1 (POPEth) PEth 16:0/18.2 (PLPEth) EBV Capsid Ag IgG Ab EBV Capsid Ag IgM Index EBV Nuclear Ag IgG Indx Hepatitis A IgM Ab Hep Bs Antigen Hep Bs Antibody Hep B Core Total Ab Hepatitis C Ab (EIA) Monoscreen Negative HIV 1&2 Ab/P24 Ag 4thGn ULTRASOUND OF THE ABDOMEN WITH ELASTOGRAPHY 03/27/23 (F-0, F-1) FINDINGS: PANCREAS: Normal. ABDOMINAL AORTA: The proximal, middle, and distal aortic segments are normal in caliber. INFERIOR VENA CAVA: Visualized portions are normal. LIVER: Normal. The liver demonstrates normal size, contour and echogenicity. No focal lesion or intrahepatic ductal dilatation. Portal flow is normal. Shear wave liver elastography median stiffness is 1.42 m/s (reference: normal median stiffness is 1.3 m/s or less). Compensated advanced chronic liver disease is ruled out if the m/s measurement is < 1.7. IQR/median stiffness to assess sampling precision is 0.19 (reference: good quality data set is IQR/median stiffness of 0.15 or less). GALLBLADDER: Minimal sludge. No gallstones. No gallbladder wall thickening or pericholecystic fluid. COMMON BILE DUCT: Normal in caliber measuring 0.5 cm in diameter. RIGHT KIDNEY: Normal. No hydronephrosis. No renal calculi or focal parenchymal lesions. The kidney measures 13.3 cm in maximum dimension. LEFT KIDNEY: Normal. No hydronephrosis. No renal calculi or focal parenchymal lesions. The kidney measures 12.8 cm in maximum dimension. SPLEEN: Normal. The spleen measures 9.3 cm in maximum dimension. FREE FLUID: None. US/US abdomen comp w elastography IMPRESSION: 1. Normal sonographic examination of the abdomen. No evidence of hepatic cirrhosis or mass. 2. Liver elastography: Although measurements appear to rule out compensated advanced chronic liver disease, there is statistical variability of the sampling which decreases accuracy. Assessment & Plan Assessment & Plan (1) Transaminitis: Code(s): R74.01 - Elevation of levels of liver transaminase levels (2) GERD (gastroesophageal reflux disease): Code(s): K21.9 - Gastro-esophageal reflux disease without esophagitis (3) Dysphagia: Comment: oropharyngeal at sternal notch Code(s): R13.10 - Dysphagia, unspecified (4) Elevated alkaline phosphatase level: Code(s): R74.8 - Abnormal levels of other serum enzymes Plan We review the tests and her #'s are coming down, she cut the hormones in half but I'm unsure if this is the reason. She was having some fatigue and ROWLEY daily prior to this. BUT her test was too low so they cut back the other hormones. She has the EGD coming up in Apr and as a follow up with me 06/21. We will keep this for now and get liver biopsy since blood test not conclusive. Return office visit after the liver biopsy. Orders: Orders US biopsy liver 04/04/23 R74.01 - Elevation of levels of liver transaminase levels, R74.8 - Abnormal levels of other serum enzymes Coding Level of Care Code Est Pt Level 3 (42847) Diagnoses Transaminitis R74.01 GERD (gastroesophageal reflux disease) K21.9 Dysphagia R13.10 Elevated alkaline phosphatase level R74.8
== END 2023-03-30 11:46 | disposition home or self-care (01) ==
PROVIDERS: PCP Internal Medicine; Visit Provider Nurse Practitioner
DX: R74.01 Elevation of levels of liver transaminase levels (principal); K21.9 Gastro-esophageal reflux disease without esophagitis; R13.10 Dysphagia, unspecified; R74.8 Abnormal levels of other serum enzymes
CPT/HCPCS: 99213

== ENCOUNTER → 2023-03-30 10:50 | Outpatient (BNVA) | payer MEDICAID, SELFPAY | PROVIDERS: PCP Internal Medicine; Visit Provider Nurse Practitioner | DX: R74.01 Elevation of levels of liver transaminase levels (principal); R13.10 Dysphagia, unspecified; K21.9 Gastro-esophageal reflux disease without esophagitis; R74.8 Abnormal levels of other serum enzymes | CPT/HCPCS: 99212 ==

== ENCOUNTER 2023-04-04 13:01 | Day surgery (SDC) | payer MEDICAID, SELFPAY ==
[2023-04-04] VITALS (7 sets, daily range): BP systolic 105–123; BP diastolic 52–77; PULSE 58–65; RESP 14–20; TEMP 36.5–36.8; O2SAT 97–99; BMI 23.0
--- NOTE | ~2023-04-04 | US_ITS ---
PROCEDURE: ULTRASOUND GUIDANCE FOR NEEDLE PLACEMENT CLINICAL INFORMATION: Elevated LFTs COMPARISON: Abdominal ultrasound 04/04/2023 TECHNIQUE: Informed consent was obtained following a discussion of the risks and benefits of the procedure with the patient. The patient was placed supine on the ultrasound procedure table. Preliminary ultrasound demonstrates normal appearing liver without focal mass. A site on the anterior abdomen was selected, marked and sterilely prepped and draped. 1% lidocaine was administered for local anesthesia. The right hepatic lobe was accessed with a 17-gauge coaxial needle under direct ultrasound guidance. [id number] core needle biopsy specimens were obtained. The coaxial needle was withdrawn while injecting a Gelfoam slurry. Hemostasis was readily achieved and a dressing was applied. FINDINGS: Normal sonographic appearance of the liver. Ultrasound images demonstrating biopsy device in the right hepatic lobe. Post biopsy images demonstrating no evidence of bleeding or other complication. US/US biopsy liver IMPRESSION: Ultrasound-guided nontargeted core needle biopsy of the liver
[2023-04-04] MEDS: Lidocaine HCl 1 % MPF 5 ML VIAL 10 ML SUBCUT (15:17)
[2023-04-04] MEDS: oxyCODONE HCl Immed Release 5 MG TABLET PO (15:25)
[2023-04-04] MEDS: Acetaminophen 325 MG TABLET 650 MG PO (15:25)
== END 2023-04-04 16:49 | disposition home or self-care (01) ==
PROVIDERS: Student in an Organized Health Care Education/Training Program; PCP Internal Medicine; Visit Provider Nurse Practitioner
DX: K75.9 Inflammatory liver disease, unspecified (principal); R74.8 Abnormal levels of other serum enzymes; R74.01 Elevation of levels of liver transaminase levels; K21.9 Gastro-esophageal reflux disease without esophagitis; R13.10 Dysphagia, unspecified; H80.90 Unspecified otosclerosis, unspecified ear; Z88.8 Allergy status to other drugs, medicaments and biological substances
CPT/HCPCS: 47000; 76942; 86850; 86900; 86901; 88307; 88313; 99152; 99153; J2250; J2310; J3010

== ENCOUNTER → 2023-04-04 14:07 | Outpatient (BNV) | payer MEDICAID, SELFPAY | PROVIDERS: PCP Internal Medicine; Visit Provider Student in an Organized Health Care Education/Training Program | DX: R74.01 Elevation of levels of liver transaminase levels (principal) | CPT/HCPCS: 47000; 76942 ==

== ENCOUNTER 2023-04-07 14:50 | Outpatient (AMB) | payer MEDICAID, SELFPAY ==
--- NOTE | 2023-04-07 14:57 | A.OFFVIS_ITS ---
Intake Vital Signs 04/07/23 14:59 Height 5 ft 10 in Weight 160 lb BMI 23.0 BP 110/64 Blood Pressure Location Lt brachial Position Sitting Pulse 56 Intake Visit Reasons: Follow up Bx results Intake Note: Patient presents to in office visit today Allergies procaine [From Novocain] Allergy (Intermediate, Verified 04/28/23 13:31) Rash HPI Follow up Bx results HPI Details Assessment & Plan (1) Dysphagia: Comment: oropharyngeal at sternal notch Code(s): R13.10 - Dysphagia, unspecified Plan: She has the EGD booked fro this Tuesday, but it is her first day at a new job....she was confused between this appt and the EGD. I will give her to the schedulers Dysphagia continues....... I did not note the aberrant liver labs until after the patient left. So I called and left a message that I wanted some more labs later this day to investigate this. I will follow up on this. ROV after procedure (2) Transaminitis: Code(s): R74.01 - Elevation of levels of liver transaminase levels (3) Elevated alkaline phosphatase level: Code(s): R74.8 - Abnormal levels of other serum enzymes (4) GERD (gastroesophageal reflux diseas e): Code(s): K21.9 - Gastro-esophageal reflux disease without esophagitis Orders: Orders Amylase Today R74.01 - Elevation of levels of live r transaminase lev els, R74.8 - Abnor mal levels of othe r serum enzymes ERIC Reflex Titer a nd Pattern Today R74.01 - Elevation of levels of live r transaminase lev els, R74.8 - Abnor mal levels of othe r serum enzymes HIV Ab/Ag Today R74.01 - Elevation of levels of live r transaminase lev els, R74.8 - Abnor mal levels of othe r serum enzymes Hepatitis A,B,C Pr ofile Today R74.01 - Elevation of levels of live r transaminase lev els, R74.8 - Abnor mal levels of othe r serum enzymes Ferritin Today R74.01 - Elevation of levels of live r transaminase lev els, R74.8 - Abnor mal levels of othe r serum enzymes Mitochondrial Anti body Today R74.01 - Elevation of levels of live r transaminase lev els, R74.8 - Abnor mal levels of othe r serum enzymes Smooth Muscle Anti body Today R74.01 - Elevation of levels of live r transaminase lev els, R74.8 - Abnor mal levels of othe r serum enzymes Transglutaminase A b IgG Today R74.01 - Elevation of levels of live r transaminase lev els, R74.8 - Abnor mal levels of othe r serum enzymes US abdomen comp w elastography Today R74.01 - Elevation of levels of live r transaminase lev els, R74.8 - Abnor mal levels of othe r serum enzymes Alpha Fetoprotein Today R74.01 - Elevation of levels of live r transaminase lev els, R74.8 - Abnor mal levels of othe r serum enzymes Gamma Glutamyl Tra nspeptidase Today R74.01 - Elevation of levels of live r transaminase lev els, R74.8 - Abnor mal levels of othe r serum enzymes Phosphatidylethano l, Blood Today R74.01 - Elevation of levels of live r transaminase lev els, R74.8 - Abnor mal levels of othe r serum enzymes Transglutaminase I gA Today R74.01 - Elevation of levels of live r transaminase lev els, R74.8 - Abnor mal levels of othe r serum enzymes LABS: Laboratory Tests 02/28/23 03/07/23 03/07/23 04:13 14:01 14:01 WBC 11.8 H RBC 4.56 L Hgb 13.7 L Hct 41.8 L MCV 91.7 MCH 30.0 Plt Count 307 Estimated GFR > 60 Ferritin Total Bilirubin Direct Bilirubin GGT AST ALT Alkaline Phosphata se Ceruloplasmin Alpha Fetoprotein 4.0 ERIC Screen NEGATIVE Anti-Mitochondrial Ab NEGATIVE Anti-Smooth Muscle Ab 52 H Tiss Transglutamin IgG <1.0 Tiss Transglutamin IgA <1.0 PEth 16:0/18.1 (PO PEth) NEGATIVE EBV Capsid Ag IgG Ab EBV Capsid Ag IgM Index EBV Nuclear Ag IgG Indx Hepatitis A IgM Ab Hep Bs Antigen Hep Bs Antibody Hep B Core Total A b Hepatitis C Ab (EI A) Monoscreen HIV 1&2 Ab/P24 Ag 4thGn Antibody Screen 03/07/23 03/07/23 03/07/23 14:01 14:01 14:01 WBC RBC Hgb Hct MCV MCH Plt Count Estimated GFR Ferritin Total Bilirubin Direct Bilirubin GGT 162 H AST ALT Alkaline Phosphata se Ceruloplasmin Alpha Fetoprotein ERIC Screen Anti-Mitochondrial Ab Anti-Smooth Muscle Ab Tiss Transglutamin IgG Tiss Transglutamin IgA PEth 16:0/18.1 (PO PEth) EBV Capsid Ag IgG Ab EBV Capsid Ag IgM Index EBV Nuclear Ag IgG Indx Hepatitis A IgM Ab Nonreactive Hep Bs Antigen Hep Bs Antibody REACTIVE Hep B Core Total A b Nonreactive Hepatitis C Ab (EI A) Nonreactive Monoscreen HIV 1&2 Ab/P24 Ag 4thGn Nonreactive Antibody Screen 03/07/23 03/11/23 03/11/23 14:01 11:05 11:05 WBC RBC Hgb Hct MCV MCH Plt Count Estimated GFR Ferritin 140 Total Bilirubin 0.5 Direct Bilirubin 0.2 GGT AST 33 ALT 70 H Alkaline Phosphata se 130 H Ceruloplasmin 38 H Alpha Fetoprotein ERIC Screen Anti-Mitochondrial Ab Anti-Smooth Muscle Ab Tiss Transglutamin IgG Tiss Transglutamin IgA PEth 16:0/18.1 (PO PEth) EBV Capsid Ag IgG Ab EBV Capsid Ag IgM Index EBV Nuclear Ag IgG Indx Hepatitis A IgM Ab Hep Bs Antigen Negative Hep Bs Antibody Hep B Core Total A b Hepatitis C Ab (EI A) Monoscreen HIV 1&2 Ab/P24 Ag 4thGn Antibody Screen 03/11/23 03/11/23 03/11/23 11:05 11:05 11:05 WBC RBC Hgb Hct MCV MCH Plt Count Estimated GFR Ferritin Total Bilirubin Direct Bilirubin GGT AST ALT Alkaline Phosphata se Ceruloplasmin Alpha Fetoprotein ERIC Screen Anti-Mitochondrial Ab Anti-Smooth Muscle Ab Tiss Transglutamin IgG Tiss Transglutamin IgA PEth 16:0/18.1 (PO PEth) EBV Capsid Ag IgG Ab 288.00 H EBV Capsid Ag IgM Index <36.00 EBV Nuclear Ag IgG Indx 296.00 H Hepatitis A IgM Ab Hep Bs Antigen Hep Bs Antibody Hep B Core Total A b Hepatitis C Ab (EI A) Monoscreen Negative HIV 1&2 Ab/P24 Ag 4thGn Antibody Screen 04/04/23 13:45 WBC RBC Hgb Hct MCV MCH Plt Count Estimated GFR Ferritin Total Bilirubin Direct Bilirubin GGT AST ALT Alkaline Phosphata se Ceruloplasmin Alpha Fetoprotein ERIC Screen Anti-Mitochondrial Ab Anti-Smooth Muscle Ab Tiss Transglutamin IgG Tiss Transglutamin IgA PEth 16:0/18.1 (PO PEth) EBV Capsid Ag IgG Ab EBV Capsid Ag IgM Index EBV Nuclear Ag IgG Indx Hepatitis A IgM Ab Hep Bs Antigen Hep Bs Antibody Hep B Core Total A b Hepatitis C Ab (EI A) Monoscreen HIV 1&2 Ab/P24 Ag 4thGn Antibody Screen NEGATIVE ULTRASOUND OF THE ABDOMEN WITH ELASTOGRAPHY 04/05/23 FINDINGS: Normal sonographic appearance of the liver. Ultrasound images demonstrating biopsy device in the right hepatic lobe. Post biopsy images demonstrating no evidence of bleeding or other complication. US/US biopsy liver IMPRESSION: Ultrasound-guided nontargeted core needle biopsy of the liver LIVER BIOPSY Received: 04/04/23 Diagnosis Liver, biopsy: - Panhepatitis (portal and lobular chron ic inflammation) with eosinophils and occasional plasma cells. - No significant steatosis or fibrosis. COMMENT: The patient's positive anti smooth muscle antibody is noted. The presence of eosinophils raises the possibility of a drug reaction or infection. While an autoimmune- mediated process is still in the differential, the relative paucity of plasma cells is not diagnostic for autoimmune hepatitis . EGD Scheduled fro 04/26/23 BIOPSY TODAY'S VISIT I could find any indication that feminization hormones have ever caused a case of hepatitis. However drugs that she is on that could be causing this are spironolactone, trazodone or even omeprazole. However, she has been on the omeprazole without change and the liver enzymes started coming down on their own. The liver biopsy was not conclusive but seem to lean towards either drug related hepatitis or infection related hepatitis with multiple eosinophils. While autoimmune is not out of the differential diagnosis is much less likely. Were going to redraw her blood and see what is going on and if we need to we will try discontinuing 1 medication at a time and reinstating 1 to time to see which is the offending medication. Return office visit in 3 weeks [facility] Medical History (Updated 05/13/23 @ 15:27 by KIRA Otero) Transgender person on hormone therapy Otosclerosis Uvulitis Dysphagia GERD (gastroesophageal reflux disease) Surgical History (Updated 04/22/23 @ 11:41 by Tamika Saba, RN) History of esophagogastroduodenoscopy (EGD) History of liver biopsy History of facial surgery Social History Patient Tobacco Use Status: Never used Tobacco Tobacco use type: Cigarette Review of Systems Const Reports fatigue, Denies fever(s), Denies night sweats, Denies poor appetite and Denies weight loss ENT Reports Normal hearing present, Denies dental pain, Reports dysphagia, Denies hearing loss, Denies mouth pain, Denies odynophagia, Denies throat swelling, Denies tongue swelling and Reports other (Dentition adequate) Card Reports no additional complaints Resp Reports no additional complaints GI Denies abdominal pain, Denies melena, Denies bloating, Denies hematochezia, Denies constipation, Denies GI cramping, Reports dysphagia, Denies excessive flatus, Denies early satiety, Reports heartburn, Denies diarrhea, Denies nausea, Denies odynophagia, Denies vomiting and Denies hematemesis Skin/Breast Denies pruritus, Denies lesions, Denies rash and Denies jaundice Neuro Reports Normal hearing present and Denies Abnormal speech present Endo Reports fatigue Aller/Immun Denies throat swelling and Denies tongue swelling Physical Exam Vital Signs: Last Vital Signs Pulse 56 04/07/23 14:59 BP 110/64 04/07/23 14:59 BMI result Body Mass Index 23.0 Const General: cooperative, no acute distress, well developed and well groomed Nutritional Appearance: average body habitus and well nourished Orientation/consciousness: oriented to person, oriented to place and oriented to time Limitations: No language barrier HEENT Head: Yes normocephalic and Yes atraumatic Eyes General: appearance normal, both eyes and all related structures Pupils: Equal, round and reactive pupils present Neck Neck: Yes normal visual inspection and Yes no lymphadenopathy Thyroid: Thyroid normal Resp Effort & Inspection: normal respiratory effort and able to speak in complete sentences Auscultation: clear to auscultation bilaterally Cardio Rate: regular rate Rhythm: regular rhythm Heart sounds: Normal, physiologic split S2 sound present Peripheral pulses: radial pulses present and posterior tibial pulses present GI Inspection: No distended and No Abdominal panniculus present Palpation (GI): Soft to palpation, nontender, no guarding, not rigid and No hepatosplenomegaly present Percussion: Yes normal to percussion Auscultation: normal bowel sounds Skin General skin exam: no rashes or lesions noted, turgor normal, skin not dry, no jaundice, No spider nevi and no striae Rashes: no rashes Nails: normal Neuro General: oriented to person, oriented to place and oriented to time Cranial nerves: Yes Equal, round and reactive pupils present and Yes Normal hearing present Speech: No Abnormal speech present Extrem General: Yes normal to inspection, No clubbing, No cyanosis and No edema Psych Appearance: grossly normal and well kempt Mental Status: mental status grossly normal Speech and movement: Normal speech and movement present Affect: Sad affect present and Anxious affect present Attitude: cooperative Thought process: Normal thought process present and not confabulating Thought content: Normal thought content present Insight: Fair insight present (Psych) Judgement: Fair judgement present (Psych) Results Reviewed Results Reviewed: Laboratory Tests 02/28/23 03/07/23 03/07/23 04:13 14:01 14:01 WBC 11.8 H RBC 4.56 L Hgb 13.7 L Hct 41.8 L MCV 91.7 MCH 30.0 Plt Count 307 Estimated GFR > 60 Ferritin Total Bilirubin Direct Bilirubin GGT AST ALT Alkaline Phosphatase Ceruloplasmin Alpha Fetoprotein 4.0 ERIC Screen NEGATIVE Anti-Mitochondrial Ab NEGATIVE Anti-Smooth Muscle Ab 52 H Tiss Transglutamin IgG <1.0 Tiss Transglutamin IgA <1.0 PEth 16:0/18.1 (POPEth) NEGATIVE EBV Capsid Ag IgG Ab EBV Capsid Ag IgM Index EBV Nuclear Ag IgG Indx Hepatitis A IgM Ab Hep Bs Antigen Hep Bs Antibody Hep B Core Total Ab Hepatitis C Ab (EIA) Monoscreen HIV 1&2 Ab/P24 Ag 4thGn Antibody Screen 03/07/23 03/07/23 03/07/23 14:01 14:01 14:01 WBC RBC Hgb Hct MCV MCH Plt Count Estimated GFR Ferritin Total Bilirubin Direct Bilirubin GGT 162 H AST ALT Alkaline Phosphatase Ceruloplasmin Alpha Fetoprotein ERIC Screen Anti-Mitochondrial Ab Anti-Smooth Muscle Ab Tiss Transglutamin IgG Tiss Transglutamin IgA PEth 16:0/18.1 ([facility]) EBV Capsid Ag IgG Ab EBV Capsid Ag IgM Index EBV Nuclear Ag IgG Indx Hepatitis A IgM Ab Nonreactive Hep Bs Antigen Hep Bs Antibody REACTIVE Hep B Core Total Ab Nonreactive Hepatitis C Ab (EIA) Nonreactive Monoscreen HIV 1&2 Ab/P24 Ag 4thGn Nonreactive Antibody Screen 03/07/23 03/11/23 03/11/23 14:01 11:05 11:05 WBC RBC Hgb Hct MCV MCH Plt Count Estimated GFR Ferritin 140 Total Bilirubin 0.5 Direct Bilirubin 0.2 GGT AST 33 ALT 70 H Alkaline Phosphatase 130 H Ceruloplasmin 38 H Alpha Fetoprotein ERIC Screen Anti-Mitochondrial Ab Anti-Smooth Muscle Ab Tiss Transglutamin IgG Tiss Transglutamin IgA PEth 16:0/18.1 ([facility]) EBV Capsid Ag IgG Ab EBV Capsid Ag IgM Index EBV Nuclear Ag IgG Indx Hepatitis A IgM Ab Hep Bs Antigen Negative Hep Bs Antibody Hep B Core Total Ab Hepatitis C Ab (EIA) Monoscreen HIV 1&2 Ab/P24 Ag 4thGn Antibody Screen 03/11/23 03/11/23 03/11/23 11:05 11:05 11:05 WBC RBC Hgb Hct MCV MCH Plt Count Estimated GFR Ferritin Total Bilirubin Direct Bilirubin GGT AST ALT Alkaline Phosphatase Ceruloplasmin Alpha Fetoprotein ERIC Screen Anti-Mitochondrial Ab Anti-Smooth Muscle Ab Tiss Transglutamin IgG Tiss Transglutamin IgA PEth 16:0/18.1 ([facility]) EBV Capsid Ag IgG Ab 288.00 H EBV Capsid Ag IgM Index <36.00 EBV Nuclear Ag IgG Indx 296.00 H Hepatitis A IgM Ab Hep Bs Antigen Hep Bs Antibody Hep B Core Total Ab Hepatitis C Ab (EIA) Monoscreen Negative HIV 1&2 Ab/P24 Ag 4thGn Antibody Screen 04/04/23 13:45 WBC RBC Hgb Hct MCV MCH Plt Count Estimated GFR Ferritin Total Bilirubin Direct Bilirubin GGT AST ALT Alkaline Phosphatase Ceruloplasmin Alpha Fetoprotein ERIC Screen Anti-Mitochondrial Ab Anti-Smooth Muscle Ab Tiss Transglutamin IgG Tiss Transglutamin IgA PEth 16:0/18.1 ([facility]) EBV Capsid Ag IgG Ab EBV Capsid Ag IgM Index EBV Nuclear Ag IgG Indx Hepatitis A IgM Ab Hep Bs Antigen Hep Bs Antibody Hep B Core Total Ab Hepatitis C Ab (EIA) Monoscreen HIV 1&2 Ab/P24 Ag 4thGn Antibody Screen NEGATIVE ULTRASOUND OF THE ABDOMEN WITH ELASTOGRAPHY 04/05/23 FINDINGS: Normal sonographic appearance of the liver. Ultrasound images demonstrating biopsy device in the right hepatic lobe. Post biopsy images demonstrating no evidence of bleeding or other complication. 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 - No significant steatosis or fibrosis. COMMENT: The patient's positive anti smooth muscle antibody is noted. The presence of eosinophils raises the possibility of a drug reaction or infection. While an autoimmune- mediated process is still in the differential, the relative paucity of plasma cells is not diagnostic for autoimmune hepatitis Assessment & Plan Assessment & Plan (1) Transaminitis: Comment: BASELINE LABS AT THE TIME OF ABERRATION 02/28/23 WBC 11.8 H RBC 4.56 L Hgb 13.7 L Hct 41.8 L MCV 91.7 MCH 30.0 Plt Count 307 Estimated GFR > 60 Alpha Fetoprotein 4.0 ERIC Screen NEGATIVE Anti-Mitochondrial Ab NEGATIVE Anti-Smooth Muscle Ab 52 H Tiss Transglutamin IgG <1.0 Tiss Transglutamin IgA <1.0 PEth 16:0/18.1 (POPEth) NEGATIVE THE GGT 162 H Hepatitis A IgM Ab Nonreactive Hep Bs Antibody REACTIVE Hep B Core Total Ab Nonreactive Hepatitis C Ab (EIA) Nonreactive HIV 1&2 Ab/P24 Ag 4thGn Nonreactive Ferritin 140 Total Bilirubin 0.5 Direct Bilirubin 0.2 AST 33 ALT 70 H Alkaline Phosphatase 130 H Ceruloplasmin 38 H Hep Bs Antigen Negative EBV Capsid Ag IgG Ab 288.00 H EBV Capsid Ag IgM Index <36.00 EBV Nuclear Ag IgG Indx 296.00 H Monoscreen Negative Antibody Screen NEGATIVE ULTRASOUND OF THE ABDOMEN WITH ELASTOGRAPHY 04/05/23 (F0) FINDINGS: Normal sonographic appearance of the liver. Ultrasound images demonstrating biopsy device in the right hepatic lobe. Post biopsy images demonstrating no evidence of bleeding or other complication. 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 - No significant steatosis or fibrosis. COMMENT: The patient's positive anti smooth muscle antibody is noted. The presence of eosinophils raises the possibility of a drug reaction or infection. While an autoimmune- mediated process is still in the differential, the relative paucity of plasma cells is not diagnostic for autoimmune hepatitis Code(s): R74.01 - Elevation of levels of liver transaminase levels (2) Elevated alkaline phosphatase level: Code(s): R74.8 - Abnormal levels of other serum enzymes Plan I could find any indication that feminization hormones have ever caused a case of hepatitis. However drugs that she is on that could be causing this are spironolactone, trazodone or even omeprazole. However, she has been on the omeprazole without change and the liver enzymes started coming down on their own. The liver biopsy was not conclusive but seem to lean towards either drug related hepatitis or infection related hepatitis with multiple eosinophils. While autoimmune is not out of the differential diagnosis is much less likely. Were going to redraw her blood and see what is going on and if we need to we will try discontinuing 1 medication at a time and reinstating 1 to time to see which is the offending medication. Return office visit in 3 weeks Orders: Orders Liver Panel 04/07/23 R74.01 - Elevation of levels of liver transaminase levels, R74.8 - Abnormal levels of other serum enzymes Smooth Muscle Antibody 04/07/23 R74.01 - Elevation of levels of liver transaminase levels, R74.8 - Abnormal levels of other serum enzymes Coding Level of Care Code Est Pt Level 4 (91154) Diagnoses Transaminitis R74.01 Elevated alkaline phosphatase level R74.8
[2023-04-07 14:59] VITALS: BP 110/64; PULSE 56; BMI 23.0
== END 2023-04-07 15:52 | disposition home or self-care (01) ==
PROVIDERS: PCP Internal Medicine; Visit Provider Nurse Practitioner
DX: R74.01 Elevation of levels of liver transaminase levels (principal); R74.8 Abnormal levels of other serum enzymes
CPT/HCPCS: 99214

== ENCOUNTER 2023-04-07 14:50 | Outpatient (REF) | payer MEDICAID, SELFPAY ==
[2023-04-07 17:18] LABS: Alanine Aminotransferase 154 U/L (0-40); Alkaline Phosphatase 178 U/L (39-117); Aspartate Amino Transferase 82 U/L (5-37); Bilirubin Direct 0.3 mg/dL (0.0-0.5); Bilirubin Total 0.6 mg/dL (0.0-1.0); Total Protein 6.9 g/dL (6.5-8.0)
[2023-04-11 23:59] LABS: Smooth Muscle Antibody 60 U (<20)
== END 2023-04-07 14:51 | disposition home or self-care (01) ==
LOC: HO.LAB 14:50
PROVIDERS: PCP Internal Medicine; Visit Provider Nurse Practitioner
DX: R74.8 Abnormal levels of other serum enzymes (principal); R74.01 Elevation of levels of liver transaminase levels; Z98.890 Other specified postprocedural states
CPT/HCPCS: 36415; 80076; 86015; 99212

== ENCOUNTER 2023-04-26 11:06 | Day surgery (SDC) | payer MEDICAID, SELFPAY ==
[2023-04-22 11:43] VITALS: BMI 23.0
[2023-04-26 11:13] VITALS: BMI 23.0
[2023-04-26 11:29] VITALS: BP 125/67; PULSE 54; RESP 16; TEMP 36; O2SAT 99
[2023-04-26] MEDS: Lactated Ringers 1,000 ML 100 ML IVCONT (11:36)
--- NOTE | 2023-04-26 11:38 | MHC.SHP ---
Pre-Procedural Eval Section A Date of Service: 04/26/23 The patient is an INPATIENT: No The History & Physical has been completed within 30 days and I have reviewed it.: No Section B Chief Complaint: Dysphagia, unspecified, GERD Relevant Family History (Specify if Yes): No Relevant Social History: None Present Medications: see Short Stay Collaborative assessment Medical History: Significant History (Transgender person on hormone therapy Otosclerosis Uvulitis Dysphagia GERD (gastroesophageal reflux disease)) History of Previous Operations: Relevant previous surgery/procedure and date(s) (History of EGD, history of liver biopsy, history of facial surgery) Allergies: Allergies Allergy/AdvReac Type Severity Reaction Status Date / Time procaine [From Novocain] Allergy Intermediate Rash Verified 04/26/23 11:28 Review of Systems Sugical H&P ROS: Negative: Constitution, Cardiovascular, Respiratory and Gastrointestinal Exam Surgical H&P Exam: Normal: Heart, Normal: Lungs, Normal: Extremities and Normal: Abdomen Plan Diagnosis/Plan: Unchanged I have reviewed the history and physical and performed a pertinent physical examination on my patient. No changes have occurred unless specified. Time Spent With Patient Time: Total time managing care of this patient today ____ minutes.
--- NOTE | 2023-04-26 12:35 | HO.ANESPROP2 ---
Documented by User: Jazzy Gutierrez NP 04/25/23 11:44 HPI - Anesthesia Eval Consult details Narrative: 42yo for Upper Endoscopy with Balloon Dilitation Transgender M to F on hormone PMFSH Active Problems Active Problems: All Active Problems (Updated 04/04/23 @ 13:30 by Rosa Lopes, RN) Dysuria (Acute) Elevated alkaline phosphatase level (Acute) Transaminitis (Acute) Pre-op examination (Acute) GERD (gastroesophageal reflux disease) (Acute) Dysphagia (Acute) Past Medical History Medical History (Updated 04/04/23 @ 13:30 by Rosa Lopes, RN) Transgender person on hormone therapy Otosclerosis Uvulitis Dysphagia GERD (gastroesophageal reflux disease) Surgical History Surgical History (Updated 04/22/23 @ 11:41 by Tamika Saba RN) History of esophagogastroduodenoscopy (EGD) History of liver biopsy History of facial surgery History of Problems with Anesthesia: No Social History Social History (Reviewed 03/30/23 @ 11:03 by Joselyn Maurice [facility]) Patient Tobacco Use Status: Never used Tobacco Tobacco use type: Cigarette Use of substances other than those prescribed or required for medical reasons: No Are you DNR?: No Advance Directives: No Advance Directives Information Provided: Yes Meds Allergies Allergy/AdvReac Type Severity Reaction Status Date / Time procaine [From Novocain] Allergy Intermediate Rash Verified 04/26/23 11:28 Home Medications Medication Instructions Recorded Confirmed Last Taken Type spironolactone 100 mg tablet 100 mg PO BID 03/09/22 04/22/23 Unknown History estradiol 1 mg tablet 1 mg PO BID 03/02/23 04/22/23 Unknown History estradiol 2 mg tablet 2 mg PO BID 03/02/23 04/22/23 Unknown History trazodone 100 mg tablet 150 mg PO BEDTIME 03/02/23 04/22/23 Unknown History progesterone micronized 100 mg 100 mg PO BEDTIME 03/30/23 04/22/23 Unknown History capsule Exam Height,Weight and Vital Signs: Height 5 ft 10 in Weight 72.575 kg Pertinent Lab Results Pertinent Lab Results: Laboratory Tests 02/28/23 04:13 WBC 11.8 H Hgb 13.7 L Hct 41.8 L Plt Count 307 Sodium 137 Potassium 3.7 Chloride 101 Carbon Dioxide 27 BUN 13 Creatinine 0.82 Assessment and Plan Assessment Anesthesia Assessment: Chart Reviewed Final Anesthetic Review History of Problems with Anesthesia: No Documented by User: Nakita Randolph DO 04/26/23 12:48 [facility] Past Medical History Medical History (Updated 04/04/23 @ 13:30 by Rosa Lopes, FRANCISCO) Transgender person on hormone therapy Otosclerosis Uvulitis Dysphagia GERD (gastroesophageal reflux disease) Surgical History Surgical History (Updated 04/22/23 @ 11:41 by Tamika Saba RN) History of esophagogastroduodenoscopy (EGD) History of liver biopsy History of facial surgery History of Problems with Anesthesia: No Social History Social History (Reviewed 03/30/23 @ 11:03 by Joselyn Maurice [facility]) Patient Tobacco Use Status: Never used Tobacco Tobacco use type: Cigarette Use of substances other than those prescribed or required for medical reasons: No Are you DNR?: No Advance Directives: No Advance Directives Information Provided: Yes Meds Allergies Allergy/AdvReac Type Severity Reaction Status Date / Time procaine [From Novocain] Allergy Intermediate Rash Verified 04/26/23 11:28 Home Medications Medication Instructions Recorded Confirmed Last Taken Type spironolactone 100 mg tablet 100 mg PO BID 03/09/22 04/22/23 Unknown History estradiol 1 mg tablet 1 mg PO BID 03/02/23 04/22/23 Unknown History estradiol 2 mg tablet 2 mg PO BID 03/02/23 04/22/23 Unknown History trazodone 100 mg tablet 150 mg PO BEDTIME 03/02/23 04/22/23 Unknown History progesterone micronized 100 mg 100 mg PO BEDTIME 03/30/23 04/22/23 Unknown History capsule Exam Exam Date and Time: April 26, 2023 1235 Height,Weight and Vital Signs: Height 5 ft 10 in Weight 72.575 kg Vital Signs Temperature 96.8 F 04/26/23 11:29 Pulse Rate 54 04/26/23 11:29 Respiratory Rate 16 04/26/23 11:29 Blood Pressure 125/67 04/26/23 11:29 Pulse Oximetry 99 04/26/23 11:29 Oxygen Delivery Method Room Air 04/26/23 11:29 Temperature 96.8 F 04/26/23 11:29 Pulse Rate 54 04/26/23 11:29 Respiratory Rate 16 04/26/23 11:29 Blood Pressure 125/67 04/26/23 11:29 Pulse Oximetry 99 04/26/23 11:29 Oxygen Delivery Method Room Air 04/26/23 11:29 Airway Mallampati Class: I TM Dist: >3cm Neck ROM: Full Loose/Missing/Broken Teeth: No Heart: S1S2 Lungs: CTAB Assessment and Plan Assessment Anesthesia Assessment: Anesthesia Plan Discussed and Chart Reviewed Final Anesthetic Review History of Problems with Anesthesia: No NPO: Yes ASA Class: II Final Preanesthetic Review: No Changes in Pt Med Stat, Meds/Allgs Chart Reviewed, Consent Obtained/Reviewed and Anes Risks/Benef Reviewed Patient Risk: Low Procedure Risk: Low Anesthetic Plan Anesthetic Plan: MAC: and Agree w/ Assess. and Plan Disposition: Standard PACU
--- NOTE | 2023-04-26 12:42 | W.PM.OPN ---
Operative Note Operative Note Date of Service: 04/26/23 Narrative: FLEXIBLE TRANSORAL UPPER GASTROINTESTINAL ENDOSCOPY WITH ESOPHAGEAL BALLOON DILATION Pre-op diagnosis: GERD, dysphagia Post-op diagnosis: Same Endoscopist:? Maile Lee MD Anesthesia:?MAC Consent: Indications for the procedure and potential complications of bleeding, perforation, reaction to medications and missed diagnosis were discussed with the patient and informed consent was obtained. Instrument: Olympus GIF H 190 mid size upper endoscope Monitoring: Vital signs and clinical assessment, continuous EKG monitoring, Pulse oximetry, Carbon Dioxide monitoring and blood pressure monitoring were done throughout the procedure. Procedure: The patient was placed in the left lateral decubitis position and pre-procedure medications were administered and a bite block was placed. The endoscope was inserted into the mouth and advanced under direct vision to the third part of duodenum. A careful inspection was made as the upper endoscope was withdrawn including a retroflexed examination of the proximal stomach; Findings and interventions are described below. Findings: Larynx: Normal Esophagus: GE junction at 40 cms. No esophagitis, Vo's, stricture or ring. Biopsies obtained during previous EGD were negative for EOE. Empiric esophageal balloon dilation of distal esophagus was performed with a 20 mm (60F) CRE balloon x 60 seconds Empiric esophageal balloon dilation of UES/proximal esophagus was performed with an 18 mm (54 F) CRE balloon x 60 seconds Stomach: Minimal gastric erythema. (Biopsies obtained during past EGD were negative for H Pylori). Grade 2 flap valve on retroflexed examination of the cardia. Duodenum: Normal bulb and descending duodenum Intervention: Esophageal balloon dilation as noted above Impression and Post Procedure Diagnosis: Endoscopy Findings: LARYNX: Normal ESOPHAGUS:? GE junction at 40 cms. No esophagitis, Vo's, stricture or ring. Biopsies obtained during previous EGD were negative for EOE. Empiric esophageal balloon dilation of distal esophagus was performed with a 20 mm (60F) CRE balloon x 60 seconds Empiric esophageal balloon dilation of UES/proximal esophagus was performed with an 18 mm (54 F) CRE balloon x 60 seconds STOMACH: Mild gastritis Plan: Await pathology results Patient has an appointment on 04/28/23 in the GI Clinic with Rosemary Carrera NP. Consider further evaluation with a barium swallow if pt has recurrent dysphagia in the future.
[2023-04-26 13:13] VITALS: BP 91/44; PULSE 54; RESP 16; O2SAT 97
[2023-04-26 13:28] VITALS: BP 106/44; PULSE 62; RESP 16; O2SAT 97
[2023-04-26 13:43] VITALS: BP 108/66; PULSE 48; RESP 16; O2SAT 99
== END 2023-04-26 14:45 | disposition home or self-care (01) ==
PROVIDERS: PCP Internal Medicine; Visit Provider Internal Medicine Gastroenterology
PROC: (CPT 43249; principal; 2023-04-26 12:00)
DX: R13.10 Dysphagia, unspecified (principal); K21.9 Gastro-esophageal reflux disease without esophagitis; K29.60 Other gastritis without bleeding; R74.01 Elevation of levels of liver transaminase levels; R74.8 Abnormal levels of other serum enzymes; F64.0 Transsexualism; H80.90 Unspecified otosclerosis, unspecified ear; Z79.890 Hormone replacement therapy; Z88.8 Allergy status to other drugs, medicaments and biological substances; Z79.899 Other long term (current) drug therapy
CPT/HCPCS: 43249; C1726; J2704

== ENCOUNTER → 2023-04-26 11:06 | Outpatient (BNV) | payer MEDICAID, SELFPAY | PROVIDERS: PCP Internal Medicine; Visit Provider Internal Medicine Gastroenterology | DX: R13.10 Dysphagia, unspecified (principal); K21.9 Gastro-esophageal reflux disease without esophagitis; K29.70 Gastritis, unspecified, without bleeding | CPT/HCPCS: 43249 ==

== ENCOUNTER 2023-04-28 13:21 | Outpatient (AMB) | payer MEDICAID, SELFPAY ==
--- NOTE | 2023-04-28 13:22 | A.OFFVIS_ITS ---
Intake Vital Signs 04/28/23 13:25 Height 5 ft 10 in Weight 164 lb 14.492 oz BMI 23.7 BP 109/77 Blood Pressure Location Lt brachial Position Sitting Pulse 55 Intake Visit Reasons: 3 weeks labs follow up Intake Note: Patient presents to in office visit today in follow up of labs and EGD. CC: She underwent EGD with dilation on 04/26/[address] Lee. Patient states he is doing better today. 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 However drugs that she is on that could be causing this are sprung lactone trazodone or even omeprazole. However, she has been on the omeprazole without change and the liver enzymes started coming down on their own. The liver biopsy was not conclusive but seem to lean towards either drug related hepatitis or infection related hepatitis with multiple eosinophils. While autoimmune is not out of the differential diagnosis is much less likely. Were going to redraw her blood and see what is going on and if we need to we will try discontinuing 1 medication at a time and reinstating 1 to time to see which is the offending medication. Return office visit in 3 weeks Assessment & Plan (1) Transaminitis: Code(s): R74.01 - Elevation of levels of liver transaminase levels (2) Elevated alkaline phosphatase level: Code(s): R74.8 - Abnormal levels of other serum enzymes Orders: Orders Liver Panel Today R74.01 - Elevation of levels of live r transaminase lev els, R74.8 - Abnor mal levels of othe r serum enzymes Smooth Muscle Anti body Today R74.01 - Elevation of levels of live r transaminase lev els, R74.8 - Abnor mal levels of othe r serum enzymes . EGD 04/26/23 Findings: Larynx: Normal Esophagus: GE junction at 40 cms. No esophagitis, Vo's, stricture or ring. Biopsies obtained during previous EGD were negative for EOE. Empiric esophageal balloon dilation of distal esophagus was performed with a 20 mm (60F) CRE balloon x 60 seconds Empiric esophageal balloon dilation of UES/proximal esophagus was performed with an 18 mm (54 F) CRE balloon x 60 seconds Stomach: Minimal gastric erythema. (Biopsies obtained during past EGD were negative for H Pylori). Grade 2 flap valve on retroflexed examination of the cardia. Duodenum: Normal bulb and descending duodenum Intervention: Esophageal balloon dilation as noted above Impression and Post Procedure Diagnosis: Endoscopy Findings: LARYNX: Normal ESOPHAGUS:? GE junction at 40 cms. No esophagitis, Vo's, stricture or ring. Biopsies obtained during previous EGD were negative for EOE. Empiric esophageal balloon dilation of distal esophagus was performed with a 20 mm (60F) CRE balloon x 60 seconds Empiric esophageal balloon dilation of UES/proximal esophagus was performed with an 18 mm (54 F) CRE balloon x 60 seconds STOMACH: Mild gastritis Plan: Await pathology results Patient has an appointment on 04/28/23 in the GI Clinic with Rosemary Carrera NP. Consider further evaluation with a barium swallow if pt has recurrent dysphagia in the future. Laboratory Tests 03/11/23 04/07/23 11:05 15:53 AST 33 82 H ALT 70 H 154 H Alkaline Phosphata se 130 H 178 H TODAY'S VISIT She has improved swallowing with EGD. This is the same as when the dilated 2 years ago so she is hopeful that this will hold. Just as long a period of time.. She stop the spironolactone many weeks ago and cut trazodone to 75 over 2 weeks; from 150mg. She cut the progesterone down as well. At this point it really looks like the trazodone may be the culprit for what might be a drug reaction hepatitis. We going to get more blood work before we make this decision. I urged her not to restart the spironolactone until we see what is going on so that we can isolate the different variables. I am also ordering her estrogen and testosterone hormone levels to help her other providers titrate what medic ation she sac we needs to maintain her status.. If we can not make a significant difference by withholding medications we may need to consider if this is actually an autoimmune hepatitis. ROV 6 weeks, going for labs today. [facility] Medical History (Updated 04/28/23 @ 13:46 by KIRA Otero) Transgender person on hormone therapy Otosclerosis Uvulitis Dysphagia GERD (gastroesophageal reflux disease) Surgical History (Updated 04/22/23 @ 11:41 by Tamika Saba RN) History of esophagogastroduodenoscopy (EGD) History of liver biopsy History of facial surgery Social History (Reviewed 03/30/23 @ 11:03 by Joselyn Maurice [facility]) Patient Tobacco Use Status: Never used Tobacco Tobacco use type: Cigarette Review of Systems Const Denies fatigue, Denies fever(s), Denies night sweats, Denies poor appetite and Denies weight loss ENT Reports Normal hearing present, Denies dental pain, Denies dysphagia, Denies hearing loss, Denies mouth pain, Denies odynophagia, Denies throat swelling, Denies tongue swelling and Reports other (Dentition adequate) Card Reports no additional complaints Resp Reports no additional complaints GI Denies abdominal pain, Denies melena, Denies bloating, Denies hematochezia, Denies constipation, Denies GI cramping, Denies dysphagia, Denies excessive flatus, Denies early satiety, Denies heartburn, Denies diarrhea, Denies nausea, Denies odynophagia, Denies vomiting and Denies hematemesis Skin/Breast Denies pruritus, Denies lesions, Denies rash and Denies jaundice Neuro Reports Normal hearing present and Denies Abnormal speech present Endo Denies fatigue Aller/Immun Denies throat swelling and Denies tongue swelling Physical Exam Vital Signs: Last Vital Signs Pulse 55 04/28/23 13:25 BP 109/77 04/28/23 13:25 BMI result Body Mass Index 23.7 Const General: cooperative, no acute distress, well developed and well groomed Nutritional Appearance: average body habitus and well nourished Orientation/consciousness: oriented to person, oriented to place and oriented to time Limitations: No language barrier HEENT Head: Yes normocephalic and Yes atraumatic Eyes General: appearance normal, both eyes and all related structures Pupils: Equal, round and reactive pupils present Neck Neck: Yes normal visual inspection and Yes no lymphadenopathy Thyroid: Thyroid normal Resp Effort & Inspection: normal respiratory effort and able to speak in complete sentences Auscultation: clear to auscultation bilaterally Cardio Rate: regular rate Rhythm: regular rhythm Heart sounds: Normal, physiologic split S2 sound present Peripheral pulses: radial pulses present and posterior tibial pulses present GI Inspection: No distended and No Abdominal panniculus present Palpation (GI): Soft to palpation, nontender, no guarding, not rigid and No hepatosplenomegaly present Percussion: Yes normal to percussion Auscultation: normal bowel sounds Rectal Exam - Male: Yes deferred Rectal Exam - Female: deferred Skin General skin exam: no rashes or lesions noted, turgor normal, skin not dry, no jaundice, No spider nevi and no striae Rashes: no rashes Nails: normal Neuro General: oriented to person, oriented to place and oriented to time Cranial nerves: Yes Equal, round and reactive pupils present and Yes Normal hearing present Speech: No Abnormal speech present Extrem General: Yes normal to inspection, No clubbing, No cyanosis and No edema Psych Appearance: grossly normal and well kempt Mental Status: mental status grossly normal Speech and movement: Normal speech and movement present Affect: normal affect Attitude: cooperative Thought process: Normal thought process present and not confabulating Thought content: Normal thought content present Insight: Fair insight present (Psych) Judgement: Fair judgement present (Psych) Results Reviewed Results Reviewed: EGD 04/26/23 Findings: Larynx: Normal Esophagus: GE junction at 40 cms. No esophagitis, Vo's, stricture or ring. Biopsies obtained during previous EGD were negative for EOE. Empiric esophageal balloon dilation of distal esophagus was performed with a 20 mm (60F) CRE balloon x 60 seconds Empiric esophageal balloon dilation of UES/proximal esophagus was performed with an 18 mm (54 F) CRE balloon x 60 seconds Stomach: Minimal gastric erythema. (Biopsies obtained during past EGD were negative for H Pylori). Grade 2 flap valve on retroflexed examination of the cardia. Duodenum: Normal bulb and descending duodenum Intervention: Esophageal balloon dilation as noted above Impression and Post Procedure Diagnosis: Endoscopy Findings: LARYNX: Normal ESOPHAGUS:? GE junction at 40 cms. No esophagitis, Vo's, stricture or ring. Biopsies obtained during previous EGD were negative for EOE. Empiric esophageal balloon dilation of distal esophagus was performed with a 20 mm (60F) CRE balloon x 60 seconds Empiric esophageal balloon dilation of UES/proximal esophagus was performed with an 18 mm (54 F) CRE balloon x 60 seconds STOMACH: Mild gastritis Plan: Await pathology results Patient has an appointment on 04/28/23 in the GI Clinic with Rosemary Carrera NP. Consider further evaluation with a barium swallow if pt has recurrent dysphagia in the future. Laboratory Tests 03/11/23 04/07/23 11:05 15:53 AST 33 82 H ALT 70 H 154 H Alkaline Phosphatase 130 H 178 H Assessment & Plan Assessment & Plan (1) Dysphagia: Comment: oropharyngeal at sternal notch Code(s): R13.10 - Dysphagia, unspecified (2) Transaminitis: Code(s): R74.01 - Elevation of levels of liver transaminase levels (3) GERD (gastroesophageal reflux disease): Code(s): K21.9 - Gastro-esophageal reflux disease without esophagitis (4) Elevated alkaline phosphatase level: Code(s): R74.8 - Abnormal levels of other serum enzymes (5) Transgender person on hormone therapy: Code(s): F64.0 - Transsexualism; Z79.899 - Other predatory animal exterminator (current) drug therapy Plan She has improved swallowing with EGD. This is the same as when the dilated 2 years ago so she is hopeful that this will hold. Just as long a period of time.. She stop the spironolactone many weeks ago and cut trazodone to 75 over 2 weeks; from 150mg. She cut the progesterone down as well. At this point it really looks like the trazodone may be the culprit for what might be a drug reaction hepatitis. We going to get more blood work before we make this decision. I urged her not to restart the spironolactone until we see what is going on so that we can isolate the different variables. I am also ordering her estrogen and testosterone hormone levels to help her other providers titrate what medication she sac we needs to maintain her status.. If we can not make a significant difference by withholding medications we may need to consider if this is actually an autoimmune hepatitis. ROV 6 weeks, going for labs today. Orders: Orders Testosterone, Total Today F64.0 - Transsexualism, R74.01 - Elevation of levels of liver transaminase levels, Z79.899 - Other half-way (current) drug therapy Smooth Muscle Antibody Today R74.01 - Elevation of levels of liver transaminase levels Estrogen Today F64.0 - Transsexualism, R74.01 - Elevation of levels of liver transaminase levels, Z79.899 - Other predatory animal exterminator (current) drug therapy Coding Level of Care Code Est Pt Level 4 (84106) Diagnoses Dysphagia R13.10 Transaminitis R74.01 GERD (gastroesophageal reflux disease) K21.9 Elevated alkaline phosphatase level R74.8 Transgender person on hormone therapy F64.0; Z79.899
[2023-04-28 13:25] VITALS: BP 109/77; PULSE 55; BMI 23.7
== END 2023-04-28 13:53 | disposition home or self-care (01) ==
PROVIDERS: PCP Internal Medicine; Visit Provider Nurse Practitioner
DX: R13.10 Dysphagia, unspecified (principal); R74.01 Elevation of levels of liver transaminase levels; K21.9 Gastro-esophageal reflux disease without esophagitis; R74.8 Abnormal levels of other serum enzymes; F64.0 Transsexualism; Z79.899 Other long term (current) drug therapy
CPT/HCPCS: 99214

== ENCOUNTER 2023-04-28 13:21 | Outpatient (REF) | payer MEDICAID, SELFPAY ==
[2023-04-28 15:14] LABS: Alanine Aminotransferase 56 U/L; Albumin Level 3.9 g/dL; Alkaline Phosphatase 86 U/L; Aspartate Amino Transferase 32 U/L; Bilirubin Direct 0.2 mg/dL; Bilirubin Total 0.4 mg/dL; Total Protein 6.9 g/dL
[2023-05-03 14:19] LABS: Testosterone, Total 12 ng/dL (see note)
[2023-05-03 23:49] LABS: Smooth Muscle Antibody 73 U (<20)
[2023-05-10 16:03] LABS: Estrogen 1673 pg/mL
== END 2023-04-28 13:22 | disposition home or self-care (01) ==
LOC: HO.LAB 13:21
PROVIDERS: PCP Internal Medicine; Visit Provider Nurse Practitioner
DX: R13.10 Dysphagia, unspecified (principal); R74.8 Abnormal levels of other serum enzymes; R74.01 Elevation of levels of liver transaminase levels; K21.9 Gastro-esophageal reflux disease without esophagitis; F64.0 Transsexualism; Z79.899 Other long term (current) drug therapy
CPT/HCPCS: 36415; 80076; 82672; 84403; 86015; 99212

== ENCOUNTER 2023-06-09 13:16 | Outpatient (AMB) | payer MEDICAID, SELFPAY ==
--- NOTE | 2023-06-09 13:22 | MHC.OFFVIS ---
Intake Vital Signs 06/09/23 13:25 Height 5 ft 10 in Weight 158 lb 11.725 oz BMI 22.8 BP 110/72 Blood Pressure Location Lt brachial Position Sitting Pulse 63 Intake Visit Reasons: 6 week follow up Intake Note: Cookie presents in the office as a 6 week follow up. CC: No concerns at this time. Allergies procaine [From Novocain] Allergy (Intermediate, Verified 06/09/23 13:25) Rash HPI 6 week follow up HPI Details Assessment & Plan (1) Dysphagia: Comment: oropharyngeal at sternal notch Code(s): R13.10 - Dysphagia, unspecified (2) Transaminitis: Code(s): R74.01 - Elevation of levels of liver transaminase levels (3) GERD (gastroesophageal reflux disease): Code(s): K21.9 - Gastro-esophageal reflux disease without esophagitis (4) Elevated alkaline phosphatase level: Code(s): R74.8 - Abnormal levels of other serum enzymes (5) Transgender person on hormone therapy: Code(s): F64.0 - Transsexualism; Z79.899 - Other long goods drier (current) drug therapy Plan She has improved swallowing with EGD. This is the same as when the dilated 2 years ago so she is hopeful that this will hold. Just as long a period of time.. She stop the spironolactone many weeks ago and cut trazodone to 75 over 2 weeks; from 150mg. She cut the progesterone down as well. At this point it really looks like the trazodone may be the culprit for what might be a drug reaction hepatitis. We going to get more blood work before we make this decision. I urged her not to restart the spironolactone until we see what is going on so that we can isolate the different variables. I am also ordering her estrogen and testosterone hormone levels to help her other providers titrate what medication she sac we needs to maintain her status.. If we can not make a significant difference by withholding medications we may need to consider if this is actually an autoimmune hepatitis. ROV 6 weeks, going for labs today. Orders: Orders Testosterone, Tota l Today F64.0 - Transsexua lism, R74.01 - Nilsa vation of levels o f liver transamina se levels, Z79.899 - Other fpc (current) drug th erapy Smooth Muscle Anti body Today R74.01 - Elevation of levels of live r transaminase lev els Estrogen Today F64.0 - Transsexua lism, R74.01 - Nilsa vation of levels o f liver transamina se levels, Z79.899 - Other long goods drier (current) drug th erapy LABS: Laboratory Tests 04/07/23 04/07/23 04/28/23 15:53 15:53 14:09 AST 82 H 32 ALT 154 H 56 Alkaline Phosphata se 178 H Estrogen 1673 Total Testosterone 12 Anti-Smooth Muscle Ab 04/28/23 14:09 AST ALT Alkaline Phosphata se 86 Estrogen Total Testosterone Anti-Smooth Muscle Ab 73 H CORRESPONDENCE On 05/05/23 @ 16:45 Rosemary Carrera Wrote To Rosemary Carrera Called patient back at 04:45 today and explained the results. On 05/04/23 @ 11:26 Reuben Jeter Wrote To Rosemary Carrera Patient called asking about lab results and requested a call back from you or staff. She questioned the anti-smooth muscle antibody level of 73, collected on 04/28/23. Please advise on what I should tell the patient. Thank TODAY'S VISIT She is at 75mcg trazodone and stopped spironolactone. Her swallowing is still good for now although she will at times choke and reminded if it worsens we can dilate again. She continues on her omeprazole 40 mg once a day. She feels that it is the trazodone driving up her liver function since she was on spironolactone for very long time without a problem. Certainly the next round of testing will be telling. Generally she is feeling good. Will repeat her liver labs the smooth muscle antibodies as well, and devise a treatment plan depending on the results. She just had some eye surgery and has a bruising/resolving scar above her left eye. ROV 8 weeks. If the labs continue to be normal we can move this appointment further out. [facility] Medical History (Updated 06/09/23 @ 13:43 by KIRA Otero) Transgender person on hormone therapy Otosclerosis Uvulitis Dysphagia GERD (gastroesophageal reflux disease) Surgical History (Updated 04/22/23 @ 11:41 by Tamika Saba RN) History of esophagogastroduodenoscopy (EGD) History of liver biopsy History of facial surgery Social History Patient Tobacco Use Status: Never used Tobacco Tobacco use type: Cigarette Review of Systems Const Denies fatigue, Denies fever(s), Denies night sweats, Denies poor appetite and Denies weight loss ENT Reports Normal hearing present, Denies dental pain, Denies dysphagia, Denies hearing loss, Denies mouth pain, Denies odynophagia, Denies throat swelling, Denies tongue swelling and Reports other (Dentition adequate) Card Reports no additional complaints Resp Reports no additional complaints GI Denies abdominal pain, Denies melena, Denies bloating, Denies hematochezia, Denies constipation, Denies GI cramping, Denies dysphagia, Denies excessive flatus, Denies early satiety, Reports heartburn, Denies diarrhea, Denies nausea, Denies odynophagia, Denies vomiting and Denies hematemesis Skin/Breast Denies pruritus, Denies lesions, Denies rash and Denies jaundice Neuro Reports Normal hearing present and Denies Abnormal speech present Endo Denies fatigue Aller/Immun Denies throat swelling and Denies tongue swelling Physical Exam Vital Signs: Last Vital Signs Pulse 63 06/09/23 13:25 BP 110/72 06/09/23 13:25 BMI result Body Mass Index 22.8 Const General: cooperative, no acute distress, well developed and well groomed Nutritional Appearance: average body habitus and well nourished Orientation/consciousness: oriented to person, oriented to place and oriented to time Limitations: No language barrier HEENT Head: Yes normocephalic and Yes atraumatic Eyes Other: Scar over left eye General: appearance normal, both eyes and all related structures Pupils: Equal, round and reactive pupils present Neck Neck: Yes normal visual inspection and Yes no lymphadenopathy Thyroid: Thyroid normal Resp Effort & Inspection: normal respiratory effort and able to speak in complete sentences Auscultation: clear to auscultation bilaterally Cardio Rate: regular rate Rhythm: regular rhythm Heart sounds: Normal, physiologic split S2 sound present Peripheral pulses: radial pulses present and posterior tibial pulses present GI Inspection: No distended and No Abdominal panniculus present Palpation (GI): Soft to palpation, nontender, no guarding, not rigid and No hepatosplenomegaly present Percussion: Yes normal to percussion Auscultation: normal bowel sounds Rectal Exam - Female: deferred Skin General skin exam: no rashes or lesions noted, turgor normal, skin not dry, no jaundice, No spider nevi and no striae Rashes: no rashes Nails: normal Neuro General: oriented to person, oriented to place and oriented to time Cranial nerves: Yes Equal, round and reactive pupils present and Yes Normal hearing present Speech: No Abnormal speech present Extrem General: Yes normal to inspection, No clubbing, No cyanosis and No edema Psych Appearance: grossly normal and well kempt Mental Status: mental status grossly normal Speech and movement: Normal speech and movement present Affect: normal affect Attitude: cooperative Thought process: Normal thought process present and not confabulating Thought content: Normal thought content present Insight: Fair insight present (Psych) Judgement: Fair judgement present (Psych) Results Reviewed Results Reviewed: Laboratory Tests 04/07/23 04/07/23 04/28/23 15:53 15:53 14:09 AST 82 H 32 ALT 154 H 56 Alkaline Phosphatase 178 H Estrogen 1673 Total Testosterone 12 Anti-Smooth Muscle Ab 04/28/23 14:09 AST ALT Alkaline Phosphatase 86 Estrogen Total Testosterone Anti-Smooth Muscle Ab 73 H Assessment & Plan Assessment & Plan (1) Transaminitis: Comment: BASELINE LABS AT THE TIME OF ABERRATION 02/28/23 WBC 11.8 H RBC 4.56 L Hgb 13.7 L Hct 41.8 L MCV 91.7 MCH 30.0 Plt Count 307 Estimated GFR > 60 Alpha Fetoprotein 4.0 ERIC Screen NEGATIVE Anti-Mitochondrial Ab NEGATIVE Anti-Smooth Muscle Ab 52 H Tiss Transglutamin IgG <1.0 Tiss Transglutamin IgA <1.0 PEth 16:0/18.1 (POPEth) NEGATIVE THE GGT 162 H Hepatitis A IgM Ab Nonreactive Hep Bs Antibody REACTIVE Hep B Core Total Ab Nonreactive Hepatitis C Ab (EIA) Nonreactive HIV 1&2 Ab/P24 Ag 4thGn Nonreactive Ferritin 140 Total Bilirubin 0.5 Direct Bilirubin 0.2 AST 33 ALT 70 H Alkaline Phosphatase 130 H Ceruloplasmin 38 H Hep Bs Antigen Negative EBV Capsid Ag IgG Ab 288.00 H EBV Capsid Ag IgM Index <36.00 EBV Nuclear Ag IgG Indx 296.00 H Monoscreen Negative Antibody Screen NEGATIVE ULTRASOUND OF THE ABDOMEN WITH ELASTOGRAPHY 04/05/23 (F0) FINDINGS: Normal sonographic appearance of the liver. Ultrasound images demonstrating biopsy device in the right hepatic lobe. Post biopsy images demonstrating no evidence of bleeding or other complication. 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 - No significant steatosis or fibrosis. COMMENT: The patient's positive anti smooth muscle antibody is noted. The presence of eosinophils raises the possibility of a drug reaction or infection. 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 Her swallowing is still good for now although she will at times choke and reminded if it worsens we can dilate again. She continues on her omeprazole 40 mg once a day. She feels that it is the trazodone driving up her liver function since she was on spironolactone for very long time without a problem. Certainly the next round of testing will be telling. Generally she is feeling good. Will repeat her liver labs the smooth muscle antibodies as well, and devise a treatment plan depending on the results. She just had some eye surgery and has a bruising/resolving scar above her left eye. ROV 8 weeks. If the labs continue to be normal we can move this appointment further out. Orders: Orders Smooth Muscle Antibody Today K21.9 - Gastro-esophageal reflux disease without esophagitis, K71.9 - Toxic liver disease, unspecified, R13.10 - Dysphagia, unspecified, R74.01 - Elevation of levels of liver transaminase levels Liver Panel Today K21.9 - Gastro-esophageal reflux disease without esophagitis, K71.9 - Toxic liver disease, unspecified, R13.10 - Dysphagia, unspecified, R74.01 - Elevation of levels of liver transaminase levels Coding Level of Care Code Est Pt Level 3 (64784) Diagnoses Transaminitis R74.01 Drug-induced disorder of liver K71.9 GERD (gastroesophageal reflux disease) K21.9 Dysphagia R13.10
[2023-06-09 13:25] VITALS: BP 110/72; PULSE 63; BMI 22.8
== END 2023-06-09 13:49 | disposition home or self-care (01) ==
PROVIDERS: PCP Internal Medicine; Visit Provider Nurse Practitioner
DX: R74.01 Elevation of levels of liver transaminase levels (principal); K71.9 Toxic liver disease, unspecified; K21.9 Gastro-esophageal reflux disease without esophagitis; R13.10 Dysphagia, unspecified
CPT/HCPCS: 99213

== ENCOUNTER → 2023-06-09 13:16 | Outpatient (BNVA) | payer MEDICAID, SELFPAY | PROVIDERS: PCP Internal Medicine; Visit Provider Nurse Practitioner | DX: R74.01 Elevation of levels of liver transaminase levels (principal); K71.9 Toxic liver disease, unspecified; K21.9 Gastro-esophageal reflux disease without esophagitis; R13.10 Dysphagia, unspecified | CPT/HCPCS: 99212 ==

== ENCOUNTER 2023-12-14 16:27 | Outpatient (REF) | payer MEDICAID, SELFPAY ==
[2023-12-14 18:56] LABS: Alanine Aminotransferase 17 U/L (0-31); Albumin Level 4.1 g/dL (3.5-5.0); Alkaline Phosphatase 64 U/L (39-117); Aspartate Amino Transferase 19 U/L (5-31); Bilirubin Direct 0.1 mg/dL (0.0-0.5); Bilirubin Total 0.3 mg/dL (0.0-1.0); Total Protein 6.8 g/dL (6.5-8.0)
[2023-12-20 13:58] LABS: Smooth Muscle Antibody 53 U (<20)
== END 2023-12-14 16:28 | disposition home or self-care (01) ==
LOC: HO.LAB 16:27
PROVIDERS: PCP Internal Medicine; Visit Provider Nurse Practitioner
DX: R74.01 Elevation of levels of liver transaminase levels (principal); K71.9 Toxic liver disease, unspecified; K21.9 Gastro-esophageal reflux disease without esophagitis; R13.10 Dysphagia, unspecified
CPT/HCPCS: 36415; 80076; 86015

== ENCOUNTER 2023-12-26 16:16 | Outpatient (REF) | payer MEDICAID, SELFPAY ==
[2023-12-26 16:31] LABS: MANUAL DIFF FLAG NO
[2023-12-26 17:00] LABS: Basophils Absolute Auto 0.1 X10*3/uL (0.0-0.2); Eosinophils Absolute Auto 0.6 X10*3/uL (0.0-0.4); Eosinophils Percent Auto 4.5 % (0-4); Hematocrit 41.2 % (37.0-47.0); Imm Gran Abs Auto 0.06 X10*3/uL (0.00-0.03); Imm Gran Pct Auto 0.5 % (0.0-0.4); Lymphocytes Absolute Auto 2.4 X10*3/uL (1.2-4.9); Lymphocytes Percent Auto 18.2 % (20-40); Mean Corpuscular Hemoglobin 30.3 pg (27.0-33.0); Mean Corpuscular Volume 89.2 fL (80.0-98.0); Mean Platelet Volume 11.2 fL (9.4-12.3); Monocytes Absolute Auto 0.9 X10*3/uL (0.1-1.2); Neutrophils Absolute Auto 9.1 x10*3/uL (2.0-8.3); Neutrophils Percent Auto 68.8 % (45-73); Platelet Count 308 X10*3/uL (160-400); Red Blood Count 4.62 X10*6/uL (4.20-5.50); White Blood Count 13.2 X10*3/uL (4.8-10.8)
[2023-12-26 17:33] LABS: Alanine Aminotransferase 19 U/L (0-31); Albumin Level 4.2 g/dL (3.5-5.0); Alkaline Phosphatase 60 U/L (39-117); Anion Gap 12 (12-20); Aspartate Amino Transferase 25 U/L (5-31); Bilirubin Total 0.4 mg/dL (0.0-1.0); Blood Urea Nitrogen 14 mg/dL (9-16); Calcium 9.6 mg/dL (8.4-10.2); Carbon Dioxide 29 mmol/L (22-29); Chloride 99 mmol/L (96-108); Cholesterol 162 mg/dL (<200); Estimated Glomerular Filt Rate > 60; Glucose Random 89 mg/dL (60-115); HDL Cholesterol 60 mg/dL (>40); LDL Cholesterol Calculated 65 mg/dL (<100); Potassium 3.7 mmol/L (3.3-5.1); Sodium 136 mmol/L (135-145); Total Protein 7.1 g/dL (6.5-8.0); Triglycerides 189 mg/dL (<150)
== END 2023-12-26 16:17 | disposition home or self-care (01) ==
LOC: HO.LAB 16:16
PROVIDERS: PCP Internal Medicine; Visit Provider Internal Medicine
DX: Z00.00 Encounter for general adult medical examination without abnormal findings (principal); F32.5 Major depressive disorder, single episode, in full remission; K21.9 Gastro-esophageal reflux disease without esophagitis; H00.025 Hordeolum internum left lower eyelid; Z87.890 Personal history of sex reassignment
CPT/HCPCS: 36415; 80053; 80061; 85025

== ENCOUNTER 2024-01-24 16:31 | Outpatient (AMB) | payer MEDICAID, SELFPAY ==
[2024-01-24 16:33] VITALS: BP 102/70; PULSE 64; BMI 22.0
--- NOTE | 2024-01-24 16:33 | MHC.OFFVIS ---
Vital Signs 01/24/24 16:33 Height 5 ft 10 in Weight 153 lb 10.595 oz BMI 22.0 BP 102/70 Blood Pressure Location Lt brachial Position Sitting Pulse 64 Intake Visit Reasons: lab result follow up Intake Note: Patient returns report today in follow up of labs. CC: Patient reports doing well and denies having any new GI symptoms today. Allergies procaine [From Novocain] Allergy (Intermediate, Verified 01/24/24 16:36) Rash HPI HPI lab result follow up: Details: Assessment & Plan (1) Transaminitis: Comment: BASELINE LABS AT THE TIME OF ABERRATION 02/28/23 WBC 11.8 H RBC 4.56 L Hgb 13.7 L Hct 41.8 L MCV 91.7 MCH 30.0 Plt Count 307 Estimated GFR > 60 Alpha Fetoprotein 4.0 ERIC Screen NEGATIVE Anti-Mitochondrial Ab NEGATIVE Anti-Smooth Muscle Ab 52 H Tiss Transglutamin IgG <1.0 Tiss Transglutamin IgA <1.0 PEth 16:0/18.1 (POPEth) NEGATIVE THE GGT 162 H Hepatitis A IgM Ab Nonreactive Hep Bs Antibody REACTIVE Hep B Core Total Ab Nonreactive Hepatitis C Ab (EIA) Nonreactive HIV 1&2 Ab/P24 Ag 4thGn Nonreactive Ferritin 140 Total Bilirubin 0.5 Direct Bilirubin 0.2 AST 33 ALT 70 H Alkaline Phosphatase 130 H Ceruloplasmin 38 H Hep Bs Antigen Negative EBV Capsid Ag IgG Ab 288.00 H EBV Capsid Ag IgM Index <36.00 EBV Nuclear Ag IgG Indx 296.00 H Monoscreen Negative Antibody Screen NEGATIVE ULTRASOUND OF THE ABDOMEN WITH ELASTOGRAPHY 04/05/23 (F0) FINDINGS: Normal sonographic appearance of the liver. Ultrasound images demonstrating biopsy device in the right hepatic lobe. Post biopsy images demonstrating no evidence of bleeding or other complication. 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 - No significant steatosis or fibrosis. COMMENT: The patient's positive anti smooth muscle antibody is noted. The presence of eosinophils raises the possibility of a drug reaction or infection. 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 Her swallowing is still good for now although she will at times choke and reminded if it worsens we can dilate again. She continues on her omeprazole 40 mg once a day. She feels that it is the trazodone driving up her liver function since she was on spironolactone for very long time without a problem. Certainly the next round of testing will be telling. Generally she is feeling good. Will repeat her liver labs the smooth muscle antibodies as well, and devise a treatment plan depending on the results. She just had some eye surgery and has a bruising/resolving scar above her left eye. ROV 8 weeks. If the labs continue to be normal we can move this appointment further out. Orders: Orders Smooth Muscle Antibody Today K21.9 - Gastro-esophageal reflux disease without esophagitis, K71.9 - Toxic liver disease, unspecified, R13.10 - Dysphagia, unspecified, R74.01 - Elevation of levels of liver transaminase levels Liver Panel Today K21.9 - Gastro-esophageal reflux disease without esophagitis, K71.9 - Toxic liver disease, unspecified, R13.10 - Dysphagia, unspecified, R74.01 - Elevation of levels of liver transaminase levels Labs: Laboratory Tests 04/07/23 04/28/23 12/14/23 15:53 14:09 16:41 Total Bilirubin AST ALT Alkaline Phosphatase Anti-Smooth Muscle Ab 60 H 73 H 53 H 12/26/23 16:30 Total Bilirubin 0.4 AST 25 ALT 19 Alkaline Phosphatase 60 Anti-Smooth Muscle Ab TODAY'S VISIT She is off of trazodone for about a month and back on spironolactone for 3 mos. LFT's pretty normal with minor bump in AST and SMA still somewhat elevated. She has current unexplained leukocytosis, which I thought might be due to the underlying reaction to the medication but this does not seem to be resolving. In fact it seems to be little bit higher than last time. It seems like this mostly manifest in eosinophils and I think just to be complete and to cover all of our basis I will refer her to Hematology for workup since I am by no means an expert on these factors. ROV 6 mos. [facility] Medical History Transgender person on hormone therapy Otosclerosis Uvulitis Dysphagia GERD (gastroesophageal reflux disease) Surgical History History of esophagogastroduodenoscopy (EGD) History of liver biopsy History of facial surgery Social History Patient Tobacco Use Status: Never used Tobacco Tobacco use type: Cigarette Review of Systems Const Denies fatigue, Denies fever(s), Denies night sweats, Denies poor appetite and Denies weight loss ENT Reports Normal hearing present, Denies dental pain, Denies dysphagia, Denies hearing loss, Denies mouth pain, Denies odynophagia, Denies throat swelling, Denies tongue swelling and Reports other (Dentition adequate) Card Reports no additional complaints Resp Reports no additional complaints GI Details: Denies abdominal pain, Denies melena, Denies bloating, Denies hematochezia, Denies constipation, Denies GI cramping, Denies dysphagia, Denies excessive flatus, Denies early satiety, Denies heartburn, Denies diarrhea, Denies nausea, Denies odynophagia, Denies vomiting and Denies hematemesis Skin/Breast Denies pruritus, Denies lesions, Denies rash and Denies jaundice Neuro Reports Normal hearing present and Denies Abnormal speech present Endo Denies fatigue Aller/Immun Denies throat swelling and Denies tongue swelling Physical Exam Vital Signs: Last Vital Signs Pulse 64 01/24/24 16:33 BP 102/70 01/24/24 16:33 BMI result Body Mass Index 22.0 Const General: cooperative, no acute distress, well developed and well groomed Nutritional Appearance: average body habitus and well nourished Orientation/consciousness: oriented to person, oriented to place and oriented to time Limitations: No language barrier HEENT Head: Yes normocephalic and Yes atraumatic Eyes General: appearance normal, both eyes and all related structures Pupils: Equal, round and reactive pupils present Neck Neck: Yes normal visual inspection and Yes no lymphadenopathy Thyroid: Thyroid normal Resp Effort & Inspection: normal respiratory effort and able to speak in complete sentences Auscultation: clear to auscultation bilaterally Cardio Rate: regular rate Rhythm: regular rhythm Heart sounds: Normal, physiologic split S2 sound present Peripheral pulses: radial pulses present and posterior tibial pulses present GI Inspection: No distended and No Abdominal panniculus present Palpation (GI): Soft to palpation, nontender, no guarding, not rigid and No hepatosplenomegaly present Percussion: Yes normal to percussion Auscultation: normal bowel sounds Rectal Exam - Female: deferred Skin General skin exam: no rashes or lesions noted, turgor normal, skin not dry, no jaundice, No spider nevi and no striae Rashes: no rashes Nails: normal Neuro General: oriented to person, oriented to place and oriented to time Cranial nerves: Yes Equal, round and reactive pupils present and Yes Normal hearing present Speech: No Abnormal speech present Extrem General: Yes normal to inspection, No clubbing, No cyanosis and No edema Psych Appearance: grossly normal and well kempt Mental Status: mental status grossly normal Speech and movement: Normal speech and movement present Affect: normal affect Attitude: cooperative Thought process: Normal thought process present and not confabulating Thought content: Normal thought content present Insight: Fair insight present (Psych) Judgement: Fair judgement present (Psych) Assessment & Plan Assessment & Plan (1) Leukocytosis: Code(s): D72.829 - Elevated white blood cell count, unspecified Category: Medical Plan She is off of trazodone for about a month and back on spironolactone for 3 mos. LFT's pretty normal with minor bump in AST and SMA still somewhat elevated. She has current unexplained leukocytosis, which I thought might be due to the underlying reaction to the medication but this does not seem to be resolving. In fact it seems to be little bit higher than last time. It seems like this mostly manifest in eosinophils and I think just to be complete and to cover all of our basis I will refer her to Hematology for workup since I am by no means an expert on these factors. ROV 6 mos. Orders: Referrals Hematology & Oncology Referral D72.829 - Elevated white blood cell count, unspecified Coding Level of Care Code Est Pt Level 3 (12328) Diagnoses Leukocytosis D72.829
== END 2024-01-24 16:59 | disposition home or self-care (01) ==
PROVIDERS: PCP Internal Medicine; Visit Provider Nurse Practitioner
DX: D72.829 Elevated white blood cell count, unspecified (principal)
CPT/HCPCS: 99213

== ENCOUNTER → 2024-01-24 16:31 | Outpatient (BNVA) | payer MEDICAID, SELFPAY | PROVIDERS: PCP Internal Medicine; Visit Provider Nurse Practitioner | DX: D72.829 Elevated white blood cell count, unspecified (principal) | CPT/HCPCS: 99212 ==

== ENCOUNTER → 2024-02-21 11:13 | Outpatient (BNV) | payer MEDICAID, SELFPAY | PROVIDERS: PCP Internal Medicine; Referring Provider Nurse Practitioner; Visit Provider Internal Medicine Medical Oncology | DX: D72.829 Elevated white blood cell count, unspecified (principal) | CPT/HCPCS: 99204 ==

== ENCOUNTER 2024-10-25 14:56 | Outpatient (REF) | payer MEDICAID, SELFPAY ==
--- NOTE | ~2024-10-25 | XR_ITS ---
EXAMINATION: XR HIP 2 OR MORE VIEWS LEFT HISTORY: popping left hip COMPARISON: There are no prior studies available for comparison. FINDINGS: Two views of the left hip are submitted. Osseous mineralization is normal. There is no fracture or dislocation. The joint space is maintained. The soft tissues are unremarkable. XR/XR hip LT min 2V IMPRESSION: Unremarkable examination of the left hip. Electronically signed by: Cj Correa MD 10/25/2024 03:39 PM EDT
--- OUTSIDE RECORDS SUMMARY | 2024-10-25 17:38 | XMS_ITS | Data Portability ---
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 There is some bilateral high-frequency sensorineural hearing loss as well as right sided tinnitus, likely related to her long history of loud noise exposure and head trauma. Not enough hearing loss to consider amplification. We discussed the importance of hearing protection and discussed some [id number] and custom options for hearing protection. I did give her the list of [facility] hearing aid providers where she can call and see if custom hearing protection is covered through her [facility]. Patient may follow-up as needed. [email or web address] Not available 01/31/2024 10:37:35 05/08/2024 05/08/2024 Both ears remain well-healed following stapes surgery. There is some bilateral high-frequency sensorineural hearing loss as well as right sided tinnitus, likely related to her long history of loud noise exposure and head trauma. Today we spent a long time talking about tinnitus. Today we discussed the pathophysiology of tinnitus and the absence of consistently successful pharmacologic treatments for tinnitus. We discussed masking strategies to decrease awareness of the tinnitus, including using a white noise machine, music, or television.We discussed how exposure to loud noise can worsen tinnitus so I recommended hearing protection. We also discussed other ways to potentially help reduce awareness of tinnitus including avoidance of caffeine, salty meals and NSAIDs. We also discussed how her currently untreated underlying anxiety/depression which is exacerbated by significant recent stress is probably also having an effect on her awareness of the tinnitus. I have urged her to work with her psychiatry team on pharmacologic intervention which has already been recommended. We also discussed how cognitive behavioral therapy has been a known effective treatment for reducing the awareness and cognitive response to tinnitus. I gave her some resources to pursue this, or she can speak with her psychiatry team. Furthermore, treatment of insomnia may also have a positive effect on her overall awareness and response to tinnitus. Not available 05/08/2024 11:49:22 10/09/2024 10/09/2024 43yo female with history of bilateral stapedotomy and left TMJ presents for evaluation of the left ear. She reports left ear infection 2 weeks ago, treated with oral amoxicillin. Otalgia resolved, but tinnitus and abnormal auditory perception persist. TMs are normal to inspection. We discussed her symptoms are consistent with left eustachian tube dysfunction after acute otitis media, which is likely self-limiting. Recommend completing amoxicillin course and starting autoinsufflation 10x daily. She can trial intranasal fluticasone. Patient will return in 2-3 months if symptoms persist or she develops new hearing loss. [email or web address] Not available 10/09/2024 12:31:59 Plan of Treatment Reminders Order Date Submit Date Provider Last Modified By Organization Details Last Modified Time Details Appointments None record ed. Lab None record ed. Referral None record ed. Procedures None record ed. Surgeries None record ed. Imaging None record ed. Medication Orders None record ed. Patient TargetsNo targets recorded. Patient InstructionsNo instructions recorded. Reason for Referral None Reported. Results Created Date Observation Date Name Description Value Unit Range Abnormal Flag Note LastModifiedBy Organization Detail LastModifiedTime 01/11/2007/27/2022 imagi ng/di agnos tic resul t No observ ation record ed. [email or web address] Not Available 23:42:12 01/11/20 24 08/19/2022 imagi ng/di agnos tic resul t No observ ation record ed. [email or web address] Not Available 23:42:14 01/11/20 24 09/10/2020 imagi ng/di agnos tic resul t No observ ation record ed. [email or web address] Not Available 23:42:21 01/11/20 24 01/15/2022 imagi ng/di agnos tic resul t No observ ation record ed. [email or web address] Not Available 23:42:24 01/11/20 24 01/30/2021 imagi ng/di agnos tic resul t No observ ation record ed. [email or web address] Not Available 23:42:27 01/11/20 24 03/18/2020 imagi ng/di agnos tic resul t No observ ation record ed. [email or web address] Not Available 23:42:32 01/11/20 24 04/15/2021 imagi ng/di agnos tic resul t No observ ation record ed. [email or web address] Not Available 23:42:53 01/11/20 24 04/24/2021 imagi ng/di agnos tic resul t No observ ation record ed. [email or web address] Not Available 23:42:59 01/11/20 24 07/27/2022 audio gram No observ ation record ed. [email or web address] Not Available 23:44:10 01/11/20 24 08/19/2022 audio gram No observ ation record ed. [email or web address] Not Available 23:44:23 01/11/20 24 09/10/2020 audio gram No observ ation record ed. [email or web address] Not Available 23:44:36 01/11/20 24 01/15/2022 audio gram No observ ation record ed. [email or web address] Not Available 23:44:57 01/11/20 24 01/30/2021 audio gram No observ ation record ed. [email or web address] Not Available 23:45:10 01/31/20 audio gram No observ ation record ed. [email or web address] Not Available 2023 16:07:31 Result Notes None recorded. Problems Name Problem SNOMED Code Status Onset Date Resolution Date Notes Provider Name and Address Organization Details Recorded Time Gastroes ophageal reflux disease without esophagi tis 744655884 Active 2020 Gastro-e sophagea l reflux disease without esophagi tis; Note: Date Diagnose d: 1 11:19 AM (K21.9) Not Available [facility] 4 02:37:32 Otoscler osis 11399056 Active 2019 Unspecif ied otoscler osis, bilatera l; Note: Date Diagnose d: 04/03/20 20 12:46 PM (H80.93) Not Available [facility] 4 02:37:31 Tinnitus of right ear 32748666976 08 Active 2022 Tinnitus , right ear; Note: Date Diagnose d: 07/27/2022 2:37 PM (H93.11) Not Available [facility] 4 02:37:28 Conducti ve hearing loss of right ear 1057265828 Completed 202001/30/2024 Conducti ve hearing loss, unilater al, right ear with restrict ed hearing on the contrala teral side; Note: Date Diagnose d: 1 3:01 PM (H90.A11 ) SB JOYNER MD [address] [place] [address], [facility] [place], [address] [facility] - [facility] 4 15:53:29 Sensorin eural hearing loss of bilatera l ears 781819207 Active 2022 Sensorin eural hearing loss, bilatera l; Note: Date Diagnose d: 3 10:11 AM (H90.3) Not Available [facility] 4 02:37:24 Follow-u p visit Active 2020 Medical surveill ance followin g complete d treatmen t; Note: Date Diagnose d: 1 2:21 PM (Z09) Not Available [facility] 4 02:37:31 Mixed conducti ve and sensorin eural hearing loss of right ear 88432907256 105 Completed 202012/23/2023 Mixed conducti ve and sensorin eural hearing loss, unilater al, right ear with restrict ed hearing on the contrala teral side; Note: Date Diagnose d: 1 2:09 PM (H90.A31 ) Not Available [facility] 4 02:37:23 Dysphagi a 23202446 Active 2020 Other dysphagi a; Note: Date Diagnose d: 1 1:29 PM (R13.19) Not Available [facility] 4 02:37:36 Pain of left temporom andibula r joint 06224596156 048958 Active 2020 Arthralg ia of left temporom andibula r joint; Note: Date Diagnose d: 3:46 PM (M26.622 ) Arthra lgia of left temporom andibula r joint; Note: Date Diagnose d: 04/03/20 12:50 PM (M26.622 ) ; Start Date : 04/03/20 Not Available [facility] 4 02:37:29 Conducti ve hearing loss, bilatera l 584091682 Completed 201901/30/2024 Conducti ve hearing loss, bilatera l; Note: Date Diagnose d: 04/03/20 12:46 PM (H90.0) SB JOYNER MD [address] [place] [address],[place] [address], [place], [address] , [facility] - [facility] 4 15:53:36 Bilatera l otoscler osis of ossicle of ears 79607008949 32389 Active 2023 BS JOYNER MD [address] [place] [address],[place] [address], [place], [address] , [facility] - [facility] 4 15:53:06 Bilatera l tinnitus 94765395755 02 Active 2024 AJIT CURRIE PA-C [address] [place] [address],[place] [address], [place], [address] , [facility] - [facility] 5 12:32:04 Abnormal auditory percepti on 67245622 Active 2024 AJIT CURRIE PA-C [address] [address], [place], [address] , [facility] 5 12:32:16 Problem Notes None recorded. Procedures Surgical History Date Name Laterality Status Provider Name and Address Organization Details Recorded Time 01/31/2024 Comp Audio with Tymps - 73024 & 30423 completed OLIVIA CAMARILLO, AUD [address] [facility],[place] [address], [place], [address], [facility] 01/31/2024 09:42:08 Imaging Results None recorded. Procedure Notes None recorded. Medical Equipment None Reported. Allergies Allergen ID Allergen Name Allergen Category Reaction Reaction Severity Criticality Documentation Date Start Date Code Code System Note Provider Name and Address Organization Details Recorded Time lidocaine hydrochlo ride medicatio n other Not available Not available 10/04/2023 47189 0 RxNorm React ion: other react ion, Unkno wn; Not Available [facility] 4 01:03:54 Medications Name Sig Start Date Stop Date Status Note LastModified by Organization Details LastModified Time amoxicill in 500 mg capsule TAKE 1 CAPSULE BY MOUTH 3 TIMES A DAY FOR 10 DAYS. TAKE W FOOD, YOGURT, PROBIOTI CS. FINISH ALL. active Not Available Not Available No t Available venlafaxi ne ER 37.5 mg capsule,e xtended release 24 hr TAKE 1 CAPSULE BY MOUTH EVERY DAY active Not Available Not Available No t Available prednison e 10 mg tablet by mouth 08/19 completed Medicati on ID: [id number] D uration Value: 14 Prescri bed By Name: Florentin Cruz nd Name: predniso ne Send Method: E-Prescr ibed Sub s Allowed: subs OK Speci al Instruct ion: Take 6 tabs once a day for 9 days, then take 5 tabs on day 10, 4 tabs on day 11, 3 tabs on day 12, 2 tabs on day 13, and 1 tab on day 14 Medic ationGen ericName : predniso ne Not Available Not Available Not Available venlafaxi ne ER 75 mg capsule,e xtended release 24 hr TAKE 1 CAPSULE BY MOUTH EVERY DAY active Not Available Not Available No t Available doxycycli ne hyclate 100 mg capsule TAKE 2 CAPSULES BY MOUTH A SINGLE DOSE WITHIN 72 HOURS AFTER UNPROTEC OSWALDO INTERCOU RSE active Not Available Not Available No t Available ketoconaz ole 2 % shampoo APPLY TO SCALP 2X/WEEK, LEAVE ON FOR 5 MINS AND RINSE OFF active Not Available Not Available No t Available famotidin e 40 mg tablet TAKE 40 MG ORALLY AT BEDTIME active Not Available Not Available No t Available spironola ctone 100 mg tablet TAKE 1 TABLET BY MOUTH EVERY DAY active Not Available Not Available No t Available Ciloxan 0.3 % eye drops 03/25 completed Medicati on ID: [id number] P maulik d By Name: MONAE Titus nd Name: Ciloxan Send Method: E-Prescr ibed Sub s Allowed: subs OK Nicolettei al Instruct ion: Instill 4 drops twice a day into affected ear for 10 days Med icationG enericNa me: Ciloxan Not Available Not Available Not Available omeprazol e 40 mg capsule,d elayed release TAKE 1 CAPSULE BY MOUTH EVERY DAY active Not Available Not Available No t Available cefadroxi l 500 mg capsule TAKE 1 CAPSULE BY MOUTH TWICE A DAY 05/08 completed Not Available Not Available Not Available ciclopiro x 8 % topical solution APPLY TOPICALL Y TO THE AFFECTED TOE NAILS EVERY DAY FOR 52 WEEKS active Not Available Not Available No t Available ofloxacin 0.3 % ear drops Apply 4 drop into right ear twice a day 01/30 completed Medicati on ID: [id number] D uration Value: 14 Brand Name: ofloxaci n Send Method: E-Prescr ibed Sub s Allowed: subs LOLITA Lantigua al Instruct ion: x 14 days Med icationG enericNa me: ofloxaci n Not Available Not Available Not Available lorazepam 0.5 mg tablet TAKE 1 TABLET BY MOUTH 1/2 AN HOUR BEFORE FLIGHT 05/08 completed Not Available Not Available Not Available estradiol 1 mg tablet TAKE 1 TABLET BY MOUTH 2 (TWO) TIMES A DAY. TAKE WITH 2MG TAB FOR TOTAL DOSE 3MG TWICE A DAY active Not Available Not Available No t Available trazodone 100 mg tablet 01/30 completed Medicati on ID: [id number] B rand Name: trazodon e Send Method: E-Prescr ibed Sub s Allowed: subs OK Speci al Instruct ion: TAKE 1 TABLET BY MOUTH DAILY AT BEDTIME WITH FOOD, MAY TAKE LESS, WATCH OUT FOR SEDATION IN THE AM Medic ationGen ericName : trazodon e Not Available Not Available Not Available erythromy jamaal 5 mg/gram (0.5 %) eye ointment PLACE 1/2 INCH INTO THE LEFT EYE 4 TIMES A DAY FOR 7 DAYS. 10/09 completed Not Available Not Available Not Available trazodone 150 mg tablet TAKE 1 TABLET BY MOUTH EVERYDAY AT BEDTIME 05/08 completed Not Available Not Available Not Available progester one micronize d 200 mg capsule TAKE 1 CAP BY MOUTH EVERY NIGHT. 01/30 completed Not Available Not Available Not Available estradiol 2 mg tablet PLEASE SEE ATTACHED FOR DETAILED DIRECTIO NS active Not Available Not Available No t Available hydrocort isone 2.5 % topical cream APPLY TOPICALL Y TO EARS TWICE DAILY NEEDED FOR FLARES active Not Available Not Available No t Available clobetaso l 0.05 % scalp solution APPLY TO SCALP TWICE A DAY NEEDED FOR FLARES active Not Available Not Available No t Available clotrimaz ole 1 % topical cream APPLY 0.4 GRAM TOPICALL Y TWICE A DAY FOR 7 DAYS active Not Available Not Available No t Available spironola ctone 50 mg tablet TAKE 1 TABLET BY MOUTH 1 TIME EACH DAY. 05/08 completed Not Available Not Available Not Available progester one micronize d 100 mg capsule TAKE 1 CAPSULE BY MOUTH EVERY DAY active Not Available Not Available No t Available amoxicill in 875 mg-potass ium clavulana te 125 mg tablet TAKE 1 TABLET BY MOUTH TWICE A DAY WITH FOOD. active Not Available Not Available No t Available oxycodone 5 mg tablet 1 TAB EVERY 4 HOURS NEEDED FOR BREAKTHR OUGH PAIN. DO NOT NEED TO USE ALL TABS. DISPOSE OF UNUSED 05/08 completed Not Available Not Available Not Available omeprazol e 20 mg tablet,de layed release 10/09 completed Medicati on ID: [id number] D uration Value: 30 Prescri bed By Name: MONAE Titus nd Name: omeprazo le Send Method: E-Prescr ibed Sub s Allowed: subs OK Speci al Instruct ion: Take 1 tab by mouth 1/2 hour before breakfas t Medica tionGene ricName: omeprazo le Not Available Not Available Not Available Vitals Date Recorded Body height Provider Name an d Address Organization Details Last Updated DateTime 10/09/2024 177.8 cm JACQUELYN MEJIA [place] - [facility] 10/09/2024 11:05:20 Date Recorded Body height Body mass index (BMI) Body weight Provider Name and Address Organization Details Last Updated DateTime 05/08/2024 177.8 cm 21.8 kg/m2 40892.04 g Lv Damián [place] - [facility] 05/08/2024 11:23:28 Social History None recorded. Functional Status None recorded. Mental Status None recorded. Family History Nothing Reported. Medical History Condition Response Depression Y GERD/Reflux Y Gynecological HistoryNo gynecological history recorded. Obstetrics History GPAL:G 0 P 0 0 0 0 Past Encounters Encounter ID Performer Location Encounter Start Date Encounter Closed Date Diagnosis/Indication Diagnosis SNOMED-CT Code Diagnosis ICD10 Code Diagnosis Note [id number] SB JOYNER MD [facility] [address] [address] 01/31/2024 09:03:53 01/31/2024 10:36:54 Bilateral otosclerosis of ossicle of ears 1704531667 423535 H80.03 Sensorineu ral hearing loss of bilateral ears 584574120 H90.3 Audiologic al evaluation results:02/2024 Right ear: Normal sloping to a mild with senso rineural hearing loss with condu ctive hearing loss with mixed hearing loss with senso rineural hearing loss above 4KHz with excellent word recognitio n. Left ear: Normal sloping to a mild with senso rineural hearing loss with condu ctive hearing loss with mixed hearing loss with senso rineural hearing loss above 3K Hz with excellent word recognitio n. Tympanomet ry: Right Ear:Type A Left Ear:Type A Tinnitus of right ear 48 65436884 108 H93.11 Patient will continue to use masking techniques to limit awareness of tinnitus Exposed to noise 8566746 W42.9XXS [id number] SB JOYNER MD [facility] [address] [address] 05/08/2024 10:52:19 05/08/2024 11:48:30 Bilateral otosclerosis of ossicle of ears 7709820489 849431 H80.03 Sensorineu ral hearing loss of bilateral ears 657262099 H90.3 Tinnitus of right ear 48 73980785 108 H93.11 Patient will continue to use masking techniques to limit awareness of tinnitus Exposed to noise 3292138 W42.9XXS [id number] AJIT CURRIE PA-C [facility] [address] [address] 10/09/2024 11:00:55 10/09/2024 11:32:42 Pain of left temporomandibular joint 5978931973 5831759 M26.622 Bilateral tinnitus 15870 72949 102 H93.13 Abnormal a uditory perception 96135639 H93.292 Health Concerns Section Related Observation LastModified by Organization Detai ls LastModified Time None Recorded Concern Status LastModified by Organization Details LastModified Time None Recorded Advance Directives Directive None Recorded Payers Insurance Date Sequence Insurance Name Policy Number Policy Cosme Covered Member ID Cosme Member ID Guarantor Name 10/09/2024 1 [place] [facility] Cookie Patricio [id number] Cookie Patricio Notes Date Note Type Note Provider Name and Address Organization Details Recorded Time 01/31/2024 text/html Patient with history of otosclerosis who underwent successful left-sided stapes surgery in May 2020. She had right-sided stapes surgery in June 2022. A few weeks after surgery she fell and hit her head very hard on the floor and began having new high-pitched right-sided tinnitus and pain. This may have also been exacerbated by doing some heavy lifting at work. Subsequently she was noted to have a new high-frequency sensorineural hearing loss so I recommended a high-dose steroid prednisone regimen for two weeks which she tolerated well. Last seen back in July 2022 at which point she was noted to have mild high-frequency sensorineural hearing loss and no residual conductive hearing loss. 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 BS JOYNER MD [address] [place] [address],[address], [address], [facility] 01/31/2024 10:38:45 05/08/2024 text/html Patient with history of otosclerosis who underwent successful left-sided stapes surgery in May 2020. She had right-sided stapes surgery in June 2022. A few weeks after surgery she fell and hit her head very hard on the floor and began having new high-pitched right-sided tinnitus and pain. This may have also been exacerbated by doing some heavy lifting at work. Subsequently she was noted to have a new high-frequency sensorineural hearing loss so I recommended a high-dose steroid prednisone regimen for two weeks which she tolerated well. Last seen back in January 2024 at which point she was noted to have bilateral high-frequency sensorineural hearing loss as well as right-sided tinnitus, likely related at least in part to her long history of loud noise exposure and head trauma. Custom hearing protection recommended. Tinnitus masking discussed with patient. She has been using hearing protection for loud noise exposure. Unfortunately, her tinnitus has become more pervasive and bothersome for her. She finds that it is affecting her cognitive focus as well as her sleep.. She reports she is having a hard time coping with this. She is dealing with a lot of underlying stress. She is working with a psychiatrist who recently recommended starting Effexor, but she has been reluctant to start this due to some negative side effects when she was taking trazodone in the past. SB JOYNER MD [address] [facility],[address], [address], [facility] 05/08/2024 11:49:41 10/09/2024 text/html 43yo female with history of bilateral stapedotomy presents for evaluation of left ear discomfort. She reports ear infection 2 weeks ago, treated with oral amoxicillin. She developed the ear infection after sensory deprivation tank therapy. Pain essentially resolved and hearing is at baseline. She reports residual left tinnitus and crinkling sound. Denies drainage. SB JOYNER MD 100 [facility],[address], [address], [facility] 10/10/2024 07:34:29 OBGyn Episode No OBEpisode recorded.
== END 2024-10-25 14:57 | disposition home or self-care (01) ==
LOC: HO.XRAY 14:56
PROVIDERS: PCP Internal Medicine; Visit Provider Internal Medicine
DX: M25.552 Pain in left hip (principal)
CPT/HCPCS: 73502

== ENCOUNTER → 2024-10-25 15:10 | Outpatient (BNV) | payer MEDICAID, SELFPAY | PROVIDERS: PCP Internal Medicine; Visit Provider Radiology Diagnostic Radiology | DX: M25.552 Pain in left hip (principal) | CPT/HCPCS: 73502 ==